=== PATIENT | male | born 1945 | race Caucasian/White ===

== ENCOUNTER → 2016-05-22 06:58 | Outpatient (CLI) | payer MEDICARE, BC ==
[2015-08-18 12:18] VITALS: BMI 25.8
[~2016-05-22 06:58] MED LIST: ASPIRIN 81 MG E81 MG PO; BENICAR HCT 40-1 TA1 PO; BENICAR20 MG PO; BYSTOLIC10 MG PO; CARAFATE1 G PO; COMBIGAN OPHT DR5 ML EACH EYE; FER-IN-SOL DROP50 ML; FLOMAX0.4 MG PO; FLUNISOLIDE29 MCG NASAL; IPRAT-ALBUT 0.5-3 ML NEB; ISOSORBIDE MONO60 M1 PO; LIPITOR10 MG PO; LUMIGAN 0.03 %2.5 ML EACH EYE; METOPROLOL TART50 MG PO; NITROSTAT0.4 MG SL; NORVASC5 MG PO; PLAVIX75 MG PO; PRILOSEC20 MG PO; PROTONIX40 MG PO; RANEXA500 MG; RANEXA500 MG PO; REQUIP XL2 MG PO; ROBAXIN-750750 MG PO; ROPINIROLE HCL2 MG PO; SPIRIVA18 MCG INH; SYMBICORT 16010.2 GM INH; ULTRAM50 MG PO
== END | disposition home or self-care (01) ==
LOC: D.RAD 06:58
DX: M54.5 Low back pain (principal)

== ENCOUNTER 2016-07-01 07:13 | Outpatient (CLI) | payer MEDICARE, BC ==
[~2016-07-01] VITALS: Ht 167.6 cm; Wt 70.0 kg
--- NOTE | ~2016-07-01 | HEMODYNAMI ---
PATIENT:TYREE ALICIA MEDICAL RECORD: [id number] : 41 LOCATION:[facility] ADMISSION DATE: 07/01/16 Generatedon:07/01/201610:54 Patient name: TYREE ALICIA Patient #: [id number] : 1945 Date of study: 07/01/2016 Page: Of Hemodynamic Procedure Report Patient Data Patient Demographics Procedure consent was obtained First Name: TYREE Gender: Male Last Name: RAVIN : 1945 [facility] Initial: J Age: 71 year(s) Patient #: [id number] Race: SSN: [id number] Additional ID: [id number] Contact details Address: [address] [place] [address] State: [place] City: [facility] Zip code: [address] Past Medical History History of disease Date Diagnosis Comments CAD Allergies Allergen Reaction Date Comments Reported Other allergy 04/12/2015 Isosorbide Admission Admission Data Admission Date: 07/01/2016 Admission Time: 7:13 Arrival Date: 07/01/2016 Arrival Time: 7:13 Admit Source: Other Insurance Payor: Medicare Height (in.): 66 BSA: 1.81 (m2) Height (cm.): 167.64 BMI: 25.66 (kg/m2) Weight (lbs.): 159 Weight (kg.): 72.12 Lab Results Lab Result Date: 07/01/2016 Lab Result Time: 0:00 Biochemistry Name Units Result Min Max BUN mg/dl 15 --(--*-)-- 7 18 Creatinine mg/dl 1.1 --(--*-)-- 0.6 1.3 Procedure Procedure Types Cath Procedure Diagnostic Procedure [facility] w/Coronaries PCI Procedure Coronary Stent Initial Miscellaneous Procedures Moderate Sedation up to 15 minutes Procedure Description Procedure Date Procedure Date: 07/01/2016 Procedure Start Time: 10:34 Procedure End Time: 10:49 Procedure Staff Name Function Neri Michaels MD Performing Physician Claudine VANEGAS Scrub Delfino Gerber RN Nurse Elsy Baez RT Monitor Procedure Data Cath Procedure Fluoroscopy Diagnostic fluoroscopy Total fluoroscopy Time: 3.3 time: 3.3 min min Diagnostic fluoroscopy Total fluoroscopy dose: 552 dose: 552 mGy mGy Contrast Material Contrast Material Type Amount (ml) Isovue 300 107 Entry Location Entry Primary Successful Side Size Upsize Upsize Entry Closure Succes sful Closure Location (Fr) 1 (Fr) 2 (Fr) Remarks Device Remarks Femoral Right 5 Fr 6 Fr Exoseal artery Short Estimated blood loss: 10 ml Diagnostic catheters Device Type Used For End Catheter Placement Cordis 5Fr Pigtail LV Angiography Catheter (MP) Cordis 5Fr JL 4.0 Procedure Catheter (MP) Cordis 5Fr 3DRC Catheter Procedure (MP) Procedure Complications No complications Procedure Medications Medication Administration Route Dosage Oxygen NC 2 l/min Lidocaine 2% added to field 20 Heparin Flush Bag added to field 2 bags (1000units/500ml NS) 0.9% NaCl I.V. 100 ml/hr Versed I.V. 1 mg Fentanyl I.V. 50 mcg Versed I.V. 1 mg Fentanyl I.V. 50 mcg Versed I.V. 1 mg Fentanyl I.V. 50 mcg Heparin Bolus I.V. 4000 units Hemodynamics Rest BSA: 1.81 (m2) O2 Consumption: Estimated: 216.84 (ml/min) O2 Consumption indexed : Estimated:119.8 (ml/min/m) Heart Rate: 82 (bpm) Snapshots Pre Cath Intra NCS Post Cath Vital Signs Time Heart Resp SPO2 etCO2 [id number] NIBP (mmHg) Rhythm Pain Sedatio n Rate (ipm) (%) (mmHg) (mmHg) Status Level (bpm) 10:16:33 80 21 98 0 0 171/102(139) NSR 0 (11) 10(A) , No pain 10:21:00 75 17 98 0 0 182/80(132) NSR 0 (11) 10(A) , No pain 10:25:20 72 17 99 0 0 131/84(108) NSR 0 (11) 10(A) , No pain 10:29:36 70 27 99 0 0 119/68(94) NSR 0 (11) 10(A) , No pain 10:33:48 69 19 99 0 0 118/68(97) NSR 0 (11) 9(A) , No pain 10:38:00 70 23 100 0 0 119/62(88) NSR 0 (11) 9(A) , No pain 10:42:11 73 20 99 0 0 115/66(95) NSR 0 (11) 9(A) , No pain 10:46:21 77 16 100 0 0 124/64(94) NSR 0 (11) 10(A) , No pain Medications Time Medication Route Dose Verified Delivered Reason Notes Effectiveness by by 10:26:25 Oxygen NC 2 Neri Buffie used for l/min Brando Gerber RN procedure 10:26:33 Lidocaine 2% added 20ml Neri Neri for local to vial Brando Michaels MD anesthetic field 10:26:40 Heparin Flush added 2 Neri Neri used for Bag to bags Brando Michaels MD procedure (1000units/500ml field NS) 10:26:50 0.9% NaCl I.V. 100 Neri Saleh Per physician ml/hr Brando Gerber RN 10:28:35 Versed I.V. 1 mg Neri Saleh for sedation Brando Gerber RN 10:28:42 Fentanyl I.V. 50 Neri Saleh for sedation mcg Brando Gerber RN 10:35:04 Versed I.V. 1 mg Nerimonica Jenkinsie for sedation Brando Gerber RN 10:35:07 Fentanyl I.V. 50 Neri Jenkinsie for sedation mcg Brando Gerber RN 10:38:43 Versed I.V. 1 mg Neri Saleh for sedation Brando Gerber RN 10:38:53 Fentanyl I.V. 50 Neri Saleh for sedation mcg Brando Gerber RN 10:39:10 Heparin Bolus I.V. 4000 Neri Jenkinsie for verifi ed units Brando Gerber RN anticoagulation with dr michaels Procedure Log Time Note 10:00:34 Delfino Gerber RN sent for patient. Start room use. 10:06:46 Informed consent obtained and on chart 10:06:50 Diagnostic Cath Status : Elective 10:07:41 Admit Source: Other 10:07:44 Arrival Date: 07/01/2016 7:13:00 AM 10:07:52 Insurance Payor : Medicare 10:08:00 Patient Height : 66 cm 10:08:04 Patient Weight : 159 kg 10:11:28 Lab Result : BUN 15 mg/dl 10:: Lab Result : Creatinine 1.1 mg/dl 10::40 Time tracking: Regular hours 10::44 Plan of Care:Hemodynamics will remain stable., Cardiac rhythm will remain stable., Comfort level will be maintained., Respiratory function will remain adequate., Patient/ family verbilizes understanding of procedure., Procedure tolerated without complication., Recovers from procedure without complications.. 10:11:50 Patient received from Pre/Post Procedure Room to CCL 1 Alert and oriented. Tansferred to table in Supine position. 10:11:51 Warm blankets applied, and tenisha hugger turned on for patient comfort. 10:11:51 Correct patient and procedure confirmed by team. 10:11:52 ECG and BP/O2 sat monitors applied to patient. 10:15:27 Baseline sample Acquired. 10:15:27 Vital chart was started 10:15:33 Rhythm: sinus rhythm , paced 10:15:35 Full Disclosure recording started 10:15:48 H&P Date Dictated: 06/24/2016 Within 30 days and on chart., H&P Addendum completed by physician on day of procedure. (MUST COMPLETE FOR ALL OUTPATIENTS). 10:15:50 Pre-procedure instructions explained to patient. 10:15:50 Pre-op teaching completed and patient verbalized understanding. 10:15:52 Family in waiting room. 10:15:53 Patient NPO since Midnight. 10:15:56 Is the patient allergic to Iodine/contrast media? No. 10:15:58 Was the patient premedicated? No 10:15:59 Is patient on blood thinner?Yes 10:16:04 ACC The patient was administered the following blood thiners within the last 24 hours: ACCPlavix 10:16:24 Patient diabetic? No. 10:16:27 Previous problem with sedation/anesthesia? No ? 10:16:29 Snore? Yes 10:16:31 Sleep apnea? No 10:16:32 Deviated septum? No 10:16:32 Opens mouth fully? Yes 10:16:33 Sticks out tongue? Yes 10:16:35 Airway obstruction? No ? 10:16:38 Dentures? No ? 10:16:42 Pre procedure: right dorsailis pedis pulse 1+ Palpable, but thready & weak; easily obliterated 10:16:44 Patient pain scale 0/10 ?. 10:16:50 IV patent on arrival in left forearm with 0.9% NaCl at [facility]. 10:16:54 Lab results completed and on chart. 10:16:59 Right groin area was prepped with chlora-prep and draped in sterile fashion 10:17:02 Alarms reviewed by R. N. 10:17:02 Sharps counted by scrub and verified by R.N. 10:18:20 Baseline sample Acquired. 10:20:18 Physician arrived 10:20:51 Use device set Femoral Dx 10:20:52 Acist Syringe opened to sterile field. 10:20:53 Bag Decanter opened to sterile field. 10:20:53 Medline Cath Pack opened to sterile field. 10:20:54 Terumo 5Fr Darrow Sheath opened to sterile field. 10:20:54 St Theo 260cm J .035 wire opened to sterile field. 10:20:55 Acist Hand Control opened to sterile field. 10:20:56 Acist Manifold opened to sterile field. 10:20:57 Diagnostic Infinity 5Fr Multipack catheter opened to sterile field. 10:20:58 Tegaderm 4 x 4 opened to sterile field. 10:25:57 --------ALL STOP TIME OUT------ 10:25:58 Final Timeout: patient, procedure, and site verified with staff and physician. All members of the team are in agreement. 10:26:03 Right groin site verified by team. 10:26:09 Sedation plan: IV Moderate Sedation Versed, Fentanyl 10:26:17 Physical assessment completed. ASA score P 2 - A patient with mild systemic disease as per Neri Michaels MD. 10:26:25 Oxygen 2 l/min NC was administered by Delfino Gerber RN; used for procedure; 10:26:33 Lidocaine 2% 20ml vial added to field was administered by Neri Michaels MD; for local anesthetic; 10:26:40 Heparin Flush Bag (1000units/500ml NS) 2 bags added to field was administered by Neri Michaels MD; used for procedure; 10:26:50 0.9% NaCl 100 ml/hr I.V. was administered by Buffie Gerber RN; Per physician; 10:28:35 Versed 1 mg I.V. was administered by Delfino Gerber RN; for sedation; 10::42 Fentanyl 50 mcg I.V. was administered by Delfino Gerber RN; for sedation; 10:30:15 Zero performed for pressure channel P1 10:30:41 Zero performed for pressure channel P1 10:34:11 Procedure started. 10:34:20 Local anesthetic to right femoral artery with Lidocaine 2% by Neri Michaels MD.INITIAL ACCESS ONLY 10:34:44 A 5 Fr sheath was inserted into the Right Femoral artery 10:35:04 Versed 1 mg I.V. was administered by Delfino Gerber RN; for sedation; 10:35:07 Fentanyl 50 mcg I.V. was administered by Delfino Gerber RN; for sedation; 10:36:10 A Cordis 5Fr Pigtail Catheter (MP) was advanced over the wire and used for LV Angiography. 10:36:17 EF : 60 % 10:36:23 Catheter removed. 10:36:31 A Cordis 5Fr JL 4.0 Catheter (MP) was advanced over the wire and used for Procedure. 10:36:59 Catheter removed. 10:38:26 A Cordis 5Fr 3DRC Catheter (MP) was advanced over the wire and used for Procedure. 10:38:31 Catheter removed. 10:38:36 Merit BasixCompak Inflation Kit opened to sterile field. 10:38:37 Terumo 6Fr Darrow Sheath opened to sterile field. 10:38:37 Ornelas Whisper J 300cm 0.014 guide wire opened to sterile field. 10:38:40 Proceeding to intervention. 10:38:43 Versed 1 mg I.V. was administered by Delfino Gerber RN; for sedation; 10:38:53 Fentanyl 50 mcg I.V. was administered by Delfino Gerber RN; for sedation; 10:39:10 Heparin Bolus 4000 units I.V. was administered by Delfino Gerber RN; for anticoagulation; verified with dr michaels 10:39:17 Sheath upsized to a 6 Fr Short. 10:41:34 6 Fr XBLAD 3.5 guide catheter was inserted over the wire 10:41:49 Whisper wire advanced. 10:42:04 Wire advanced across lesion. 10:44:27 Inflation Number: 1 A Secret Escapestronic Resolute 2.5 X 14 stent was prepped and advanced across the Ramus. The stent was deployed at 11 BELINDA for 0:10 (min:sec). 10:44:44 Cordis 6Fr Exoseal opened to sterile field. 10:44:50 Wire removed. 10:44:51 Guide catheter removed. 10:45:56 Sheath removed intact; hemostasis achieved with Exoseal to the Right Femoral artery. 10:45:59 Procedure ended.(Physican Out) 10:46:52 Fluoroscopy time 03.30 minutes. 10:47:26 Fluoroscopy dose: 552 mGy 10:47:26 Flurop Dose total: 552 10:47:32 Contrast amount:Isovue 300 107ml. 10:47:34 Sharps counted by scrub and verified by R.N. 10:47:41 Insertion/operative site no bleeding no hematoma. 10:47:46 Post-op/insertion site Right Femoral artery dressed using a 4 x 4 and Tegaderm. 10:47:51 Post right femoral artery:stable 10:47:54 Post Procedure Pulses reassessed and unchanged 10:48:01 Post-procedure physical assessment completed. ASA score P 2 - A patient with mild systemic disease as per Neri Michaels MD. 10:48:05 Post procedure rhythm: unchanged. 10:48:09 Estimated blood loss: 10 ml 10:48:12 Post procedure instruction explained to patient.Patient verbalizes understanding. 10:48:34 Procedure type changed to Cath procedure, Diagnostic procedure, LHC, LHC w/Coronaries, PCI procedure, Coronary Stent Initial, Miscellaneous Procedures, Moderate Sedation up to 15 minutes 10:48:36 Procedure and supply charges have been captured, reviewed, submitted and are correct. 10:49:00 Procedure Complication : No complications 10:49:03 Vital chart was stopped 10:49:07 See physician's report for complete and final results. 10:49:38 Report given to [facility]. 10:49:42 Patient transfered to [facility] with Bed. 10:49:44 Procedure ended. 10:49:44 Full Disclosure recording stopped 10:49:48 End room use (Document Last) 10:49:48 End room use (Document Last) Intervention Summary Intervention Notes Time ActionType Lesion and Equipment Action# Pressure Duration Attributes Used 10:44:27 Place stent Ramus Medtronic 1 11 00:10 Resolute 2.5 X 14 stent Device Usage Item Name Manufacture Quantity Catalog Hospital Part Current Minimal Lot# / Number Charge Number Stock Stock Serial# Code Acist Acist 1 [id number] 052973 656399 20 Syringe Medical [employer] Inc Bag Microtek 1 2002S 569017 34350 185857 5 Decanter Medical Inc. Medline Cardinal 1 [id number] 987866 62650 542622 5 Cath Pack Health Terumo 5Fr Terumo 1 [id number] 279489 963601 884820 [address] Theo St Theo 1 285697 120782 938856 554351 30 260cm J .035 wire Acist Hand Acist 1 99460 426072 663196 219434 5 Control Medical Systems Inc Acist Acist 1 92955 543417 780410 078337 5 Manifold Medical Systems Inc Diagnostic Cardinal 1 [id number] 609228 98406 067895 30 Infinity Health 5Fr Multipack catheter Tegaderm 4 3M 1 1626W 417241 485898 997715 5 x 4 Cordis 5Fr Cardinal 1 220848 5 Pigtail Health Catheter (MP) Cordis 5Fr Cardinal 1 733483 5 JL 4.0 Health Catheter (MP) Cordis 5Fr Cardinal 1 202041 5 3D Health Catheter (MP) Merit Merit 1 [id number] 908998 607534 749154 15 BasixCompak Medical Inflation Kit Terumo 6Fr Terumo 1 [id number] 863760 077883 108172 40 Darrow Sheath Ornelas Ornelas 1 [id number] 038403 382006 966285 5 Whisper J Vascular 300cm 0.014 guide wire Medtronic Medtronic 1 [id number] 628078 687518 6 [id number] Resolute 2.5 X 14 stent Cordis 6Fr Cardinal 1 [id number] 622811 452663 509545 10 [facility] Sproutkin Signature Audit Nelson Stage Time Signature Unsigned Intra-Procedure 07/01/2016 Elsy Baez 10:54:36 AM RT(R) Signatures Monitor : Elsy Baez Signature : RT Date : Time : [facility] [address] [place] [address]
--- NOTE | ~2016-07-01 | HEMODYNAMI ---
PATIENT:TYREE ALICIA MEDICAL RECORD: [id number] : 41 LOCATION:[facility] [address] [facility] [id number] ADMISSION DATE: 07/01/16 Generatedon:07/02/20168:37 Patient name: TYREE ALICIA Patient #: [id number] : 1945 Date of study: 07/02/2016 Page: Of Hemodynamic Procedure Report Patient Data Patient Demographics Procedure consent was obtained First Name: TYREE Gender: Male Last Name: RAVIN : 1945 [facility] Initial: J Age: 71 year(s) Patient #: [id number] Race: SSN: [id number] Additional ID: [id number] Contact details [address]: [address] [place] [address] State: [place] City: [facility] Zip code: [address] Past Medical History History of disease Date Diagnosis Comments CAD Allergies Allergen Reaction Date Comments Reported Other allergy 04/12/2015 Isosorbide Admission Admission Data Admission Date: 07/01/2016 Admission Time: 7:13 Arrival Date: 07/01/2016 Arrival Time: 7:13 Admit Source: Other Insurance Payor: Medicare Room #: D.2117 Height (in.): 66 BSA: 1.81 (m2) Height (cm.): 167.64 BMI: 25.66 (kg/m2) Weight (lbs.): 159 Weight (kg.): 72.12 Lab Results Lab Result Date: 07/01/2016 Lab Result Time: 0:00 Biochemistry Name Units Result Min Max BUN mg/dl 15 --(--*-)-- 7 18 Creatinine mg/dl 1.1 --(--*-)-- 0.6 1.3 Procedure Procedure Types Cath Procedure PCI Procedure Coronary Stent Initial Miscellaneous Procedures Moderate Sedation up to 15 minutes Procedure Description Procedure Date Procedure Date: 07/02/2016 Procedure Start Time: 8:18 Procedure End Time: 8:36 Procedure Staff Name Function Neri Michaels MD Performing Physician Hector Rousseau RT Scrub Tracy Hunt RN Nurse Benjamín Best RT Monitor Procedure Data Cath Procedure Fluoroscopy Diagnostic fluoroscopy Total fluoroscopy Time: 5.6 time: 5.6 min min Diagnostic fluoroscopy Total fluoroscopy dose: 557 dose: 557 mGy mGy Contrast Material Contrast Material Type Amount (ml) Isovue 300 68 Entry Location Entry Primary Successful Side Size Upsize Upsize Entry Closure Succes sful Closure Location (Fr) 1 (Fr) 2 (Fr) Remarks Device Remarks Femoral Left 6 Fr Exoseal artery Short Estimated blood loss: 10 ml Procedure Complications No complications Procedure Medications Medication Administration Route Dosage Oxygen NC 2 l/min Heparin Flush Bag added to field 2 bags (1000units/500ml NS) Lidocaine 2% added to field 20 Versed I.V. 1 mg Fentanyl I.V. 50 mcg Versed I.V. 1 mg Fentanyl I.V. 50 mcg Versed I.V. 0.5 mg Fentanyl I.V. 25 mcg Versed I.V. 0.5 mg Fentanyl I.V. 25 mcg Heparin Bolus I.V. 4000 units Hemodynamics Rest BSA: 1.81 (m2) O2 Consumption: Estimated: 209.82 (ml/min) O2 Consumption indexed : Estimated:115.92 (ml/min/m) Heart Rate: 72 (bpm) Snapshots Pre Cath Intra NCS Post Cath Vital Signs Time Heart Resp SPO2 NIBP (mmHg) Rhythm Pain Sedation Rate (ipm) (%) Status Level (bpm) 7:50:03 73 18 100 169/92(136) NSR 0 (11) 10(A) , No pain 7:54:23 71 14 100 163/84(140) NSR 0 (11) 10(A) , No pain 7:58:39 72 17 99 146/83(117) NSR 0 (11) 10(A) , No pain 8:02:53 69 15 97 122/72(103) NSR 0 (11) 10(A) , No pain 8:07:03 69 14 97 113/66(85) NSR 0 (11) 10(A) , No pain 8:11:11 69 16 97 108/63(87) NSR 0 (11) 10(A) , No pain 8:15:17 69 16 97 106/64(85) NSR 0 (11) 9(A) , No pain 8:19:20 69 16 97 110/66(87) NSR 0 (11) 9(A) , No pain 8:23:28 69 16 97 110/65(88) NSR 0 (11) 9(A) , No pain 8:27:34 70 16 97 111/64(86) NSR 0 (11) 9(A) , No pain 8:31:40 77 15 97 123/68(98) NSR 0 (11) 9(A) , No pain 8:35:52 70 12 97 113/68(96) NSR 0 (11) 9(A) , No pain Medications Time Medication Route Dose Verified Delivered Reason Notes Effectiveness by by 7:52:37 Oxygen NC 2 Neri Tracy Per physician l/min Brando Hunt RN 7:52:46 Heparin Flush added 2 Neri Neri used for Bag to bags Brando Michaels MD procedure (1000units/500ml field NS) 7:54:08 Lidocaine 2% added 20ml Neri Neri used for to vial Brando Michaels MD procedure field 7:56:27 Versed I.V. 1 mg Neri Tracy for sedation Brando Hunt RN 7:56:40 Fentanyl I.V. 50 Neri Tracy for sedation mcg Brando Hunt RN 7:58:30 Versed I.V. 1 mg Neri Tracy for sedation Brando Hunt RN 7:59:06 Fentanyl I.V. 50 Neri Tracy for sedation mcg Brando Hunt RN 8:01:45 Versed I.V. 0.5 Neri Tracy for sedation mg Brando Hunt RN 8:01:57 Fentanyl I.V. 25 Neri Tracy for sedation mcg Brando Hunt RN 8:16:17 Versed I.V. 0.5 Neri Tracy for sedation mg Brando Hunt RN 8:16:24 Fentanyl I.V. 25 Neri Tracy for sedation mcg Brando Hunt RN 8:20:26 Heparin Bolus I.V. 4000 Neri Tracy for dose units Brando Hunt RN anticoagulation verified wt dr michaels Procedure Log Time Note 7:30:15 Hector VANEGAS(R) sent for patient. Start room use. 7:32:09 ACC Patient presents with Stable Angina CCS Anginal Class 2--Slight limitation of ordinary activity. 7:32:13 Diagnostic Cath status Urgent 7:32:23 Time tracking: Regular hours 7:32:27 Plan of Care:Hemodynamics will remain stable., Cardiac rhythm will remain stable., Comfort level will be maintained., Respiratory function will remain adequate., Patient/ family verbilizes understanding of procedure., Procedure tolerated without complication., Recovers from procedure without complications.. 7:47:04 Patient received from PCU to CCL 2 Alert and oriented. Tansferred to table in Supine position. 7:47:05 Warm blankets applied, and tenisha hugger turned on for patient comfort. 7:47:05 Correct patient and procedure confirmed by team. 7:47:06 Signed procedure consent form obtained from patient. 7:47:07 ECG and BP/O2 sat monitors applied to patient. 7:48:53 Vital chart was started 7:52:37 Oxygen 2 l/min NC was administered by Tracy Hunt RN; Per physician; 7:52:46 Heparin Flush Bag (1000units/500ml NS) 2 bags added to field was administered by Neri Michaels MD; used for procedure; 7:54:08 Lidocaine 2% 20ml vial added to field was administered by Neri Michaels MD; used for procedure; 7:55:12 Baseline sample Acquired. 7:55:22 Rhythm: sinus rhythm 7:55:24 Full Disclosure recording started 7:55:29 H&P Date Dictated: 07/01/2016 Within 30 days and on chart., H&P Addendum completed by physician on day of procedure. (MUST COMPLETE FOR ALL OUTPATIENTS). 7:55:31 Pre-procedure instructions explained to patient. 7:55:31 Pre-op teaching completed and patient verbalized understanding. 7:55:34 Family in waiting room. 7:55:35 Patient NPO since Midnight. 7:55:37 Is the patient allergic to Iodine/contrast media? No. 7:55:38 Is patient on blood thinner?Yes 7:55:41 ACC The patient was administered the following blood thiners within the last 24 hours: ACCPlavix 7:55:42 Patient diabetic? No. 7:55:44 Previous problem with sedation/anesthesia? No ? 7:55:46 Snore? Yes 7:55:47 Sleep apnea? No 7:55:48 Deviated septum? No 7:55:49 Opens mouth fully? Yes 7:55:49 Sticks out tongue? Yes 7:55:51 Airway obstruction? No ? 7:55:53 Dentures? No ? 7:55:56 Pre procedure: left dorsailis pedis pulse 1+ Palpable, but thready & weak; easily obliterated 7:55:58 Patient pain scale 0/10 ?. 7:56:07 IV patent on arrival in left forearm with 0.9% NaCl at [facility]. 7:56:09 Lab results completed and on chart. 7:56:12 Left groin area was prepped with chlora-prep and draped in sterile fashion 7:56:13 Alarms reviewed by R. N. 7:56:14 Sharps counted by scrub and verified by R.N. 7:56:15 --------ALL STOP TIME OUT------ 7:56:15 Final Timeout: patient, procedure, and site verified with staff and physician. All members of the team are in agreement. 7:56:19 Left groin site verified by team. 7:56:22 Physical assessment completed. ASA score P 2 - A patient with mild systemic disease as per Neri Michaels MD. 7:56:24 Sedation plan: IV Moderate Sedation Versed, Fentanyl 7:56:27 Versed 1 mg I.V. was administered by Tracy Hunt RN; for sedation; 7:56:40 Fentanyl 50 mcg I.V. was administered by Tracy Hunt RN; for sedation; 7:58:30 Versed 1 mg I.V. was administered by Tracy Hunt RN; for sedation; 7:59:06 Fentanyl 50 mcg I.V. was administered by Tracy Hunt RN; for sedation; 8:01:45 Versed 0.5 mg I.V. was administered by Tracy Hunt RN; for sedation; 8:01:57 Fentanyl 25 mcg I.V. was administered by Tracy Hunt RN; for sedation; 8:03:18 Zero performed for pressure channel P1 8:16:17 Versed 0.5 mg I.V. was administered by Tracy Hunt RN; for sedation; 8:16:24 Fentanyl 25 mcg I.V. was administered by Tracy Hunt RN; for sedation; 8:17:32 Use device set Femoral PCI 8:17:33 Tegaderm 4 x 4 opened to sterile field. 8:17:34 Acist Manifold opened to sterile field. 8:17:35 Acist Syringe opened to sterile field. 8:17:35 Acist Hand Control opened to sterile field. 8:17:36 Bag Decanter opened to sterile field. 8:17:36 Medline Cath Pack opened to sterile field. 8:17:36 Terumo 6Fr Elberfeld Sheath opened to sterile field. 8:17:37 St Theo 260cm J .035 wire opened to sterile field. 8:17:37 Merit BasixCompak Inflation Kit opened to sterile field. 8:17:53 Ornelas Whisper J 300cm 0.014 guide wire opened to sterile field. 8:17:54 Cordis 6FR XBLAD 3.5 guide catheter opened to sterile field. 8:17:57 Procedure started. 8:18:01 Local anesthetic to left femerol artery with Lidocaine 2% by Neri Michaels MD.INITIAL ACCESS ONLY 8:20:26 Heparin Bolus 4000 units I.V. was administered by Tracy Hunt RN; for anticoagulation; dose verified wtih dr michaels 8:20:48 A 6 Fr Short sheath was inserted into the Left Femoral artery 8:21:15 ACC PCI Site: mLAD has 80% stenosis. 8:21:17 ACC Pre-intervention DERICK Flow is 3. 8:21:22 6 Fr XBLAD 3.5 guide catheter was inserted over the wire 8:22:03 Whisper wire advanced. 8:22:58 Wire advanced across lesion. 8:24:15 The Medtronic Resolute 3.0 X 15 stent was advanced then removed because of failure to cross lesion 8:24:21 Wire removed. 8:24:24 Guide Catheter removed. unable to get back-up support 8:24:31 Cordis 6FR XBLAD 4.0 guide catheter opened to sterile field. 8:24:38 6 Fr XBLAD 4 guide catheter was inserted over the wire 8:25:25 Choice PT XS wire advanced. 8:25:34 Talco Sci Choice PT Extra Support J 300cm .014 gu opened to sterile field. 8:25:59 Wire advanced across lesion. 8:26:18 Inflation number: 1 A Talco Sci [place] 3.0 X 20 balloon was prepped and advanced across the Mid LAD, then inflated to 17 BELINDA for 0:10 (min:sec). 8:26:53 Multiple inflations made at 17 Atms. 8:27:46 Balloon removed over the wire. 8:28:34 Inflation Number: 2 A Medtronic Resolute 3.0 X 15 stent was prepped and advanced across the Mid LAD. The stent was deployed at 21 BELINDA for 0:10 (min:sec). 8:29:12 Inflation number: 3 The stent balloon was then re-inflated across the Mid LAD to 15 BELINDA for 0:10 (min:sec). 8:29:36 Cordis 6Fr Exoseal opened to sterile field. 8:30:01 Inflation number: 4 The stent balloon was then re-inflated across the Mid LAD to 21 BELINDA for 0:10 (min:sec). 8:30:10 ACC Post-intervention DERICK Flow is 3. 8:30:11 Stent catheter was removed intact over wire. 8:30:12 Wire removed. 8:30:12 Guide catheter removed. 8:30:21 Sheath removed intact; hemostasis achieved with Exoseal to the Left Femoral artery. 8:30:24 Procedure ended.(Physican Out) 8:30:38 Fluoroscopy time 05.60 minutes. 8:30:41 Fluoroscopy dose: 557 mGy 8:30:41 Flurop Dose total: 557 8:30:45 Contrast amount:Isovue 300 68ml. 8:30:47 Sharps counted by scrub and verified by R.N. 8:30:48 Insertion/operative site no bleeding no hematoma. 8:30:54 Post-op/insertion site Left Femoral artery dressed using a 4 x 4 and Tegaderm. 8:30:56 Post Procedure Pulses reassessed and unchanged 8:30:59 Post-procedure physical assessment completed. ASA score P 2 - A patient with mild systemic disease as per Neri Michaels MD. 8:31:03 Post procedure rhythm: unchanged. 8:31:06 Estimated blood loss: 10 ml 8:31:07 Post procedure instruction explained to patient.Patient verbalizes understanding. 8:31:07 Patient needs reinforcement of post procedure teaching. 8:31:14 Procedure type changed to Cath procedure, PCI procedure, Coronary Stent Initial, Miscellaneous Procedures, Moderate Sedation up to 15 minutes 8:31:18 Procedure Complication : No complications 8:32:04 Procedure and supply charges have been captured, reviewed, submitted and are correct. 8:36:42 Vital chart was stopped 8:36:45 See physician's report for complete and final results. 8:36:47 Report given to PCU. 8:36:49 Patient transfered to PCU with Bed. 8:36:52 Procedure ended. 8:36:52 Full Disclosure recording stopped 8:36:57 End room use (Document Last) Intervention Summary Intervention Notes Time ActionType Lesion and Equipment Action# Pressure Duration Attributes Used 8:24:15 Discard Medtronic Stent Resolute 3.0 X 15 stent 8:26:18 Inflate Mid LAD Talco 1 17 00:10 balloon Sci [place] 3.0 X 20 balloon 8:28:34 Place stent Mid LAD Medtronic 2 21 00:10 Resolute 3.0 X 15 stent 8:29:12 Reinflate Mid LAD Medtronic 3 15 00:10 stent Resolute balloon 3.0 X 15 stent 8:30:01 Reinflate Mid LAD Medtronic 4 21 00:10 stent Resolute balloon 3.0 X 15 stent Device Usage Item Name Manufacture Quantity Catalog Number Hospital Part Current Mini mal Lot# / Charge Number Stock Stock Serial# Code Tegaderm 4 3M 1 [id number] [id number] 5 x 4 Acist Acist 1 93859 331446 134662 138713 5 Manifold Medical Systems Inc Acist Acist 1 57470 850790 628930 268239 20 Syringe Medical Systems Inc Acist Hand Acist 1 78376 454201 532983 737661 5 Control Medical Systems Qwilr Bag Microtek 1 2002S 043161 75754 833553 5 [place]. Medline Cardinal 1 [id number] 347949 33447 842084 5 The Zebra Terumo 6Fr Terumo 1 [id number] 025287 288800 251479 [address] Theo 1 608988 459396 854469 713691 30 260cm J .035 wire Merit Merit 1 [id number] 949686 665512 420629 15 BasixCompak Medical Inflation Kit Ornelas Ornelas 1 [id number] 611542 792655 001967 5 Whisper J Vascular 300cm 0.014 guide wire Cordis 6FR Cardinal 1 [id number] 804007 946551 787813 10 XBLAD 3.5 Health guide catheter Medtronic Medtronic 1 [id number] 397356 743238 4 [id number] Resolute 3.0 X 15 stent Cordis 6FR Cardinal 1 [id number] 782692 336704 516352 3 XBLAD 4.0 Health guide catheter Talco Sci Talco 1 [id number] 149256 499395 568417 5 Choice PT Scientific Extra Support J 300cm .014 gu Talco Sci Talco 1 [id number] 989972 177547 450863 1 AssayMetrics 3.0 X 20 balloon Cordis 6Fr Cardinal 1 EX600 179174 566482 600991 10 Soonr Signature Audit [place] Stage Time Signature Unsigned Intra-Procedure 07/02/2016 Benjamín Best 8:37:12 AM RT(R) Signatures Monitor : Benjamín Best RT Signature : Date : Time : [id number] [place] [address]
--- NOTE | ~2016-07-01 | OP ---
PATIENT NAME: TYREE ALICIA MEDICAL RECORD: [id number] :41 LOCATION:D. D.7 ADMISSION DATE: SURGEON: JING ERVIN MD DATE OF OPERATION: 07/02/2016 PROCEDURES: 1. PTCA stent, LAD. 2. Selective coronary angiography. INDICATIONS: Angina and coronary artery disease. PROCEDURE IN DETAIL: After informed consent was obtained and after detailed explanation of risks, benefits as well as alternative therapies, the patient elected to proceed with angiogram and angioplasty. The left femoral area was prepped and draped in normal sterile fashion. Left femoral artery was cannulated via modified Seldinger technique with placement of 6-Kyrgyz sheath. All catheters exchanged through this sheath. FINDINGS: The left anterior descending has an 80% in-stent restenosis in the mid vessel. This was addressed with a 3.0 x 15 mm Resolute stent. Result was 0% residual stenosis. OVERALL IMPRESSION: Successful percutaneous transluminal coronary angioplasty stent of the left anterior descending going from 80% in-stent restenosis to 0% residual. TRANSINT:[id number] Voice Confirmation ID: [id number] DOCUMENT ID: [id number] JING ERVIN MD CC: [id number] DICTATION DATE: 07/02/16 0835 DOUBLE END SEWER: 07/02/16 1054 REG [facility] [address] [place] [id number]
--- NOTE | ~2016-07-01 | OP ---
PATIENT NAME: TYREE ALICIA MEDICAL RECORD: [id number] :41 LOCATION:D.M2 D.2117 ADMISSION DATE: SURGEON: JING ERVIN MD DATE OF OPERATION: 07/01/2016 PROCEDURES: 1. PTCA stent of the left circumflex. 2. Left heart catheterization. 3. Selective coronary angiography. 4. Left ventriculogram. INDICATION: Angina and coronary artery disease. PROCEDURE IN DETAIL: After informed consent was obtained and after a detailed explanation of the risks, benefits as well as alternative therapies, the patient elected to proceed with angiogram and angioplasty. The right femoral area was prepped and draped in normal sterile fashion. Right femoral artery was cannulated via modified Seldinger technique with placement of 6-[place] sheath. All catheters exchanged through this sheath. FINDINGS: The left ventriculogram was performed in standard 30-degree RODRIGUEZ view, reveals good cardiac wall motion throughout all segments. Overall ejection fraction estimated at 60%. SELECTIVE CORONARY ANGIOGRAPHY: 1. Left main showed no significant angiographic disease. 2. Left anterior descending has previously placed stents. There is 80 plus percent in-stent restenosis in the mid vessel. 3. The left circumflex has a relatively large ramus intermedius, has a previously placed stent. This is widely patent. However, proximal to this, there is 80 plus percent stenosis, otherwise the circumflex has only mild irregularities. 4. The right coronary has previously placed stents, these are widely patent with no significant restenosis. No disease elsewise throughout the RCA or its branches. PTCA stent of the left circumflex, ramus intermedius, the balloon with stent used was a 2.5 x 14-mm Resolute. Result was 0% residual stenosis. OVERALL IMPRESSION: Successful percutaneous transluminal coronary angioplasty stent of the ramus intermedius going from 80 plus percent initial stenosis to 0% residual. TRANSINT:[id number] Voice Confirmation ID: [id number] DOCUMENT ID: [id number] JING ERVIN MD CC: [id number] DICTATION DATE: 07/01/16 105 CRM SOLUTION ARCHITECT: 07/01/162104 [facility] [address] [place] [address]
--- NOTE | ~2016-07-01 | DS ---
PATIENT:TYREE ALICIA :41 MEDICAL RECORD: [id number] DISCHARGE SUMMARY ADMISSION DATE: 07/01/16 DISCHARGE DATE: DISCHARGE DIAGNOSES: 1. Angina. 2. Coronary artery disease. 3. Percutaneous transluminal coronary angioplasty stent, ramus intermedius and left anterior descending this admission. HOSPITAL COURSE: Mr. Alicia presents with anginal symptomatology, found to have 3-vessel coronary artery disease of the left circumflex, ramus intermedius as well as the LAD, underwent successful PTCA stent of above territories. He had an uneventful postop course. He was discharged home to continue aspirin and Plavix. We will follow up with [facility] in 1 month. TRANSINT:[id number] Voice Confirmation ID: [id number] DOCUMENT ID: [id number] JING ERVIN MD CC: [id number] DICTATION DATE: 07/02/16 0835 STAVE CUTTER: 07/02/16 1224 REG [facility] [address] [place] [id number]
[~2016-07-01 07:13] MED LIST changes: -FLUNISOLIDE29 MCG NASAL
[2016-07-01] MEDS ORDERED: FLOMAX0.4 MG PO (07:34)
[2016-07-01] MEDS ORDERED: FLUNISOLIDE29 MCG NASAL (07:35)
[2016-07-01 07:37] VITALS: BP 172/86; BMI 24.9
[2016-07-01 08:04] LABS: CALCIUM 8.9 mg/dL (8.5-10.1); CARBON DIOXIDE 26.1 mmol/L (21.0-32.0); CREATININE - SERUM 1.1 mg/dL (0.6-1.3); POTASSIUM - SERUM 4.1 mmol/L (3.5-5.1)
[2016-07-01 08:25] LABS: BASOPHILS 0.2 % (0.0-2.0); EOSINOPHILS 0.9 % (0-7); HEMATOCRIT 41.4 % (42.0-54.0); HEMOGLOBIN 13.3 g/dL (13.5-17.5); IMMATURE GRANULOCYTES 0.6 % (0-5); LYMPHOCYTES 22.5 % (15-50); MCH 25.9 pg (26.0-34.0); MCHC 32.1 g/dL (31.0-37.0); MCV 80.7 fL (80.0-100.0); MEAN PLATELET VOLUME 9.6 fL (7.4-10.4); MONOCYTES 13.8 % (2-11); PLATELET COUNT 276 10x3/uL (130-400); RBC 5.13 10x6/uL (4.20-6.10); RDW 17.8 % (11.5-14.5); WBC 10.2 10x3/uL (4.8-10.8)
--- NOTE | 2016-07-01 11:00 | NUR ---
RECEIVED PT TO ROOM 2116 IN STABLE CONDITION RT YESICA LO C/D/I DENIES ANY NEEDS OR DISCOMFORT
[2016-07-01 13:14] VITALS: BP 159/82
[2016-07-01 15:20] VITALS: Ht 167.6 cm; Wt 70.0 kg
[2016-07-01 17:16] VITALS: BP 163/73
--- NOTE | 2016-07-01 19:00 | NUR ---
INITIAL ROUNDS MADE. PT SITTING UP IN BED WATCHING TV. DENIES NEEDS OR C/O AT THIS TIME. CALL LIGHT IN REACH. WILL CONT TO MONITOR.
[2016-07-01 20:00] VITALS: BP 158/82
--- NOTE | 2016-07-02 00:27 | NUR ---
ENVIRONMENTAL SAFETY SPECIALIST AT BEDSIDE FOR VS. NEEDS ADDRESSED AT THIS TIME. CALL LIGHT IN REACH. WILL CONT TO MONITOR.
[2016-07-02 00:36] VITALS: BP 144/92
[2016-07-02 04:59] VITALS: BP 158/77
--- NOTE | 2016-07-02 06:34 | NUR ---
SITTING UP IN BED WATCHING TV. NO NEEDS OR C/O VOICED AT THIS TIME. WILL CONT TO MONITOR.
--- NOTE | 2016-07-02 13:30 | NUR ---
REVIEWED DISCHARGE INSTRUCTIONS WITH PT AND BOTH STATE UNDERSTANDING COPY GIVEN DCD SALINE LOCK DCD TO LFA WITH IV CATHETER INTACT NO REDNESS OR EDEMA NOTED AT SITE PT DISCHARGED HOME IN STABLE CONDITION LEFT UNIT VIA W/C WITH ALL PERSOAL BELONGINGS
== END 2016-07-02 13:30 | disposition home or self-care (01) ==
LOC: D.M2 07:13 → D.CATH 07:13 → D.M2 11:14 → D.CATH 07-02 13:30
PROVIDERS: Internal Medicine Interventional Cardiology
DX: I25.119 Atherosclerotic heart disease of native coronary artery with unspecified angina pectoris (principal); R94.31 Abnormal electrocardiogram [ECG] [EKG]; Z95.0 Presence of cardiac pacemaker; I10 Essential (primary) hypertension; F17.200 Nicotine dependence, unspecified, uncomplicated; E78.5 Hyperlipidemia, unspecified
CPT/HCPCS: 93458; C9600 ×2

== ENCOUNTER 2016-09-24 08:54 | Outpatient (CLI) | payer MEDICARE, BC ==
[~2016-09-24] VITALS: Ht 167.6 cm; Wt 69.1 kg
--- NOTE | ~2016-09-24 | OP ---
PATIENT NAME: TYREE ALICIA MEDICAL RECORD: [id number] :41 LOCATION:D.CAT ADMISSION DATE: SURGEON: JING ERVIN MD OPERATION DATE: 09/24/16 PROCEDURES: 1. Left heart catheterization. 2. Selective coronary angiography. 3. Left ventriculogram. INDICATION: 1. Angina. 20 Coronary artery disease. PROCEDURE IN DETAIL: After informed consent was obtained and after detailed explanation of risks, benefits, as well as alternative therapies, the patient elected to proceed with angiogram. The right femoral area was prepped and draped in a normal sterile fashion. The right femoral artery was cannulated via modified Seldinger technique with placement of 5-Ecuadorean sheath. All catheters exchanged through this sheath. FINDINGS: The left ventriculogram was performed in standard 30 degree RODRIGUEZ view, reveals good cardiac wall motion throughout all segments. Overall ejection fraction estimated 60%. SELECTIVE CORONARY ANGIOGRAPHY: 1. Left main is with no significant angiographic disease. 2. Left anterior descending has previously placed stents. These are widely patent with no significant restenosis. No disease elsewise throughout the left anterior descending or its branches. 3. The left circumflex has mild irregularities but no flow-limiting stenosis. 4. The right coronary artery has previously placed stents. These are widely patent with no significant stenosis. No disease elsewise throughout the right coronary artery or its branches. OVERALL IMPRESSION: No significant restenosis of the previously placed stents. No disease elsewise. Continue medical management of the coronary artery disease and cardiac risk factors. JING ERVIN MD CC: [id number] DICTATION DATE: 09/24/16 1400 PHYSICS TECHNICAL OFFICER: DM 09/25/16 0908 DEP CLI 09/24/16 [id number] [place] [address]
--- NOTE | ~2016-09-24 | HEMODYNAMI ---
PATIENT:TYREE ALICIA MEDICAL RECORD: [id number] : 41 LOCATION:[facility] ADMISSION DATE: 09/24/16 Generatedon:09/24/201611:25 Patient name: TYREE ALICIA Patient #: [id number] : 1945 Date of study: 09/24/2016 Page: Of Hemodynamic Procedure Report Patient Data Patient Demographics Procedure consent was obtained First Name: TYREE Gender: Male Last Name: RAVIN : 1945 [facility] Initial: J Age: 71 year(s) Patient #: [id number] Race: SSN: [id number] Additional ID: [id number] Contact details Address: [address] [place] [address] State: [place] City: [facility] Zip code: [address] Past Medical History History of disease Date Diagnosis Comments CAD Allergies Allergen Reaction Date Comments Reported Other allergy 04/12/2015 Isosorbide Codeine 09/24/2016 Admission Admission Data Admission Date: 09/24/2016 Admission Time: 8:54 Lab Results Lab Result Date: 09/24/2016 Lab Result Time: 0:00 Biochemistry Name Units Result Min Max BUN mg/dl 10 --(-*--)-- 7 18 Calcium mg/dl 1.1 *-(----)-- 8.5 10.1 CBC Name Units Result Min Max Hemoglobin g/dl 12.8 -*(----)-- 13.5 17.5 Procedure Procedure Types Cath Procedure Diagnostic Procedure LHC LHC w/Coronaries Miscellaneous Procedures Moderate Sedation up to 30 minutes Procedure Description Procedure Date Procedure Date: 09/24/2016 Procedure Start Time: 11:17 Procedure End Time: 11:23 Procedure Staff Name Function Neri Michaels MD Performing Physician Benjamín Best RT Scrub Tracy Hunt RN Nurse Vishal Lester RN Installation And Repair Technician Hector Rousseau RT Monitor Procedure Data Cath Procedure Fluoroscopy Diagnostic fluoroscopy Total fluoroscopy Time: 0.8 time: 0.8 min min Diagnostic fluoroscopy Total fluoroscopy dose: 228 dose: 228 mGy mGy Contrast Material Contrast Material Type Amount (ml) Isovue 300 51 Entry Location Entry Primary Successful Side Size Upsize Upsize Entry Closure Succes sful Closure Location (Fr) 1 (Fr) 2 (Fr) Remarks Device Remarks Femoral Right 5 Fr Exoseal artery Diagnostic catheters Device Type Used For End Catheter Placement Cordis 5Fr Pigtail LV Angiography Catheter (MP) Cordis 5Fr JL 4.0 Left Coronary Catheter (MP) Angiography Cordis 5Fr 3DRC Catheter Right Coronary (MP) Angiography Procedure Complications No complications Procedure Medications Medication Administration Route Dosage Oxygen NC 2 l/min Heparin Flush Bag added to field 2 bags (1000units/500ml NS) Lidocaine 2% added to field 20 Versed I.V. 1 mg Fentanyl I.V. 50 mcg Versed I.V. 1 mg Fentanyl I.V. 50 mcg Versed I.V. 1 mg Fentanyl I.V. 50 mcg Versed I.V. 1 mg Fentanyl I.V. 50 mcg Hemodynamics Rest HGB: 12.8 (g/dl) Heart Rate: 80 (bpm) Snapshots Pre Cath Intra NCS Post Cath Vital Signs Time Heart Resp SPO2 NIBP (mmHg) Rhythm Pain Sedation Rate (ipm) (%) Status Level (bpm) 10:47:19 81 16 98 148/88(120) NSR 0 (11) 10(A) , No pain 10:51:33 79 16 100 150/84(118) NSR 0 (11) 10(A) , No pain 10:55:47 83 15 100 147/85(114) NSR 0 (11) 10(A) , No pain 11:00:03 79 19 100 139/80(109) NSR 0 (11) 10(A) , No pain 11:04:19 78 16 100 116/68(96) NSR 0 (11) 10(A) , No pain 11:08:25 75 15 100 125/72(95) NSR 0 (11) 9(A) , No pain 11:12:34 75 15 100 115/71(104) NSR 0 (11) 9(A) , No pain 11:16:40 73 15 100 122/74(101) NSR 0 (11) 9(A) , No pain 11:20:48 81 15 100 122/75(106) NSR 0 (11) 9(A) , No pain 11:23:22 82 16 99 133/74(104) NSR 0 (11) 9(A) , No pain Medications Time Medication Route Dose Verified Delivered Reason Notes Effec tiveness by by 10:47:25 Oxygen NC 2 Neri Tracy used for l/min Brando Hunt RN procedure 10:47:39 Heparin Flush added 2 Neri Neri used for Bag to bags Brando Michaels MD procedure (1000units/500ml field NS) 10:47:50 Lidocaine 2% added 20ml Neri Neri used for to vial Brando Michaels MD procedure field 10:58:03 Versed I.V. 1 mg Neri Tracy for Brando Hunt RN sedation 10:58:15 Fentanyl I.V. 50 Neri Tracy for mcg Brando Hunt RN sedation 11:00:06 Versed I.V. 1 mg Neri Tracy for Brando Hunt RN sedation 11:00:18 Fentanyl I.V. 50 Neri Tracy for mcg Brando Hunt RN sedation 11:02:09 Versed I.V. 1 mg Neri Tracy for Brando Hunt RN sedation 11:02:16 Fentanyl I.V. 50 Neri Tracy for mcg Brando Hunt RN sedation 11:05:02 Versed I.V. 1 mg Neri Tracy for Brnado Hunt RN sedation 11:05:19 Fentanyl I.V. 50 Neri Tracy for mcg Brando Hunt RN sedation Procedure Log Time Note 10:39:06 ACC Patient presents with Stable Angina CCS Anginal Class 2--Slight limitation of ordinary activity. 10:39:08 Diagnostic Cath status Elective 10:39:10 Vishal Lester RN sent for patient. Start room use. 10:39:11 Time tracking: Regular hours 10:39:15 Plan of Care:Hemodynamics will remain stable., Cardiac rhythm will remain stable., Comfort level will be maintained., Respiratory function will remain adequate., Patient/ family verbilizes understanding of procedure., Procedure tolerated without complication., Recovers from procedure without complications.. 10:40:55 Patient received from Pre/Post Procedure Room to [facility] 2 Alert and oriented. Tansferred to table in Supine position. 10:41:04 Warm blankets applied, and tenisha hugger turned on for patient comfort. 10:41:04 Correct patient and procedure confirmed by team. 10:41:05 Signed procedure consent form obtained from patient. 10:41:06 ECG and BP/O2 sat monitors applied to patient. 10:46:16 Vital chart was started 10:47:25 Oxygen 2 l/min NC was administered by Tracy Hunt RN; used for procedure; 10:47:39 Heparin Flush Bag (1000units/500ml NS) 2 bags added to field was administered by Neri Michaels MD; used for procedure; 10:47:50 Lidocaine 2% 20ml vial added to field was administered by Neri Michaels MD; used for procedure; 10:54:56 Baseline sample Acquired. 10:54:58 Rhythm: sinus rhythm 10:55:00 Full Disclosure recording started 10:55:16 H&P Date Dictated: 09/23/2016 Within 30 days and on chart., H&P Addendum completed by physician on day of procedure. (MUST COMPLETE FOR ALL OUTPATIENTS). 10:55:18 Pre-procedure instructions explained to patient. 10:55:18 Pre-op teaching completed and patient verbalized understanding. 10:55:23 Family in patients room. 10:55:24 Patient NPO since Midnight. 10:55:40 Patient allergic to Codeine 10:55:43 Is the patient allergic to Iodine/contrast media? No. 10:55:49 Is patient on blood thinner?Yes 10:55:52 ACC The patient was administered the following blood thiners within the last 24 hours: ACCPlavix 10:55:55 Patient diabetic? No. 10:55:56 ----Pre-sedation anethsthesia assessment.---- 10:55:58 Previous problem with sedation/anesthesia? No ? 10:56:00 Snore? Yes 10:56:02 Sleep apnea? No 10:56:04 Deviated septum? No 10:56:05 Opens mouth fully? Yes 10:56:06 Sticks out tongue? Yes 10:56:08 Airway obstruction? No ? 10:56:10 Dentures? No ? 10:56:12 Pre procedure: right dorsailis pedis pulse 1+ Palpable, but thready & weak; easily obliterated 10:56:15 Patient pain scale 0/10 ?. 10:56:39 IV patent on arrival in left forearm with 0.9% NaCl at 10ml/hr. 10:57:28 Lab Result : Calcium 1.1 mg/dl 10:57:28 Lab Result : BUN 10 mg/dl 10:57:28 Lab Result : Hemoglobin 12.8 g/dl 10:57:31 Lab results completed and on chart. 10:57:38 Right groin area was prepped with chlora-prep and draped in sterile fashion 10:57:39 Alarms reviewed by R. N. 10:57:39 Sharps counted by scrub and verified by R.N. 10:57:40 --------ALL STOP TIME OUT------ 10:57:40 Final Timeout: patient, procedure, and site verified with staff and physician. All members of the team are in agreement. 10:57:42 Right groin site verified by team. 10:57:45 Physical assessment completed. ASA score P 2 - A patient with mild systemic disease as per Neri Michaels MD. 10:57:49 Sedation plan: IV Moderate Sedation Versed, Fentanyl 10:57:57 Use device set Femoral Dx 10:57:58 Acist Syringe opened to sterile field. 10:57:58 Bag Decanter opened to sterile field. 10:57:59 Medline Cath Pack opened to sterile field. 10:57:59 Terumo 5Fr Sheldon Sheath opened to sterile field. 10:57:59 St Theo 260cm J .035 wire opened to sterile field. 10:58:01 Acist Hand Control opened to sterile field. 10:58:01 Acist Manifold opened to sterile field. 10:58:02 Diagnostic Infinity 5Fr Multipack catheter opened to sterile field. 10:58:02 Tegaderm 4 x 4 opened to sterile field. 10:58:03 Versed 1 mg I.V. was administered by Tracy Hunt RN; for sedation; 10:58:15 Fentanyl 50 mcg I.V. was administered by Tracy Hunt RN; for sedation; 11:00:06 Versed 1 mg I.V. was administered by Tracy Hunt RN; for sedation; 11:00:18 Fentanyl 50 mcg I.V. was administered by Tracy Hunt RN; for sedation; 11:01:46 Zero performed for pressure channel P1 11:02:09 Versed 1 mg I.V. was administered by Tracy Hunt RN; for sedation; 11::16 Fentanyl 50 mcg I.V. was administered by Tracy Hunt RN; for sedation; 11:05:02 Versed 1 mg I.V. was administered by Tracy Hunt RN; for sedation; 11:05:19 Fentanyl 50 mcg I.V. was administered by Tracy Hunt RN; for sedation; 11:16:58 Procedure started. 11:17:27 Local anesthetic to right femoral artery with Lidocaine 2% by Neri Michaels MD.INITIAL ACCESS ONLY 11:17:37 A 5 Fr sheath was inserted into the Right Femoral artery 11:17:55 A Cordis 5Fr Pigtail Catheter (MP) was advanced over the wire and used for LV Angiography. 11:17:59 LV angiography performed. 11:18:00 LV gram done using RODRIGUEZ 11:18:18 Injector settings: Ml/sec: 10, Volume: 20, 11:18:38 EF : 55 % 11:18:42 Catheter removed. 11:18:49 A Cordis 5Fr JL 4.0 Catheter (MP) was advanced over the wire and used for Left Coronary Angiography. 11:18:53 LCA angiography performed. 11:20:02 Catheter removed. 11:20:23 A Cordis 5Fr 3DRC Catheter (MP) was advanced over the wire and used for Right Coronary Angiography. 11:20:26 RCA angiography performed. 11:20:38 Catheter removed. 11:20:43 Contrast amount:Isovue 300 51ml. 11:20:49 Sheath removed intact; hemostasis achieved with Exoseal to the Right Femoral artery. 11:20:57 Cordis 5Fr Exoseal opened to sterile field. 11:21:00 Procedure ended.(Physican Out) 11:22:01 Fluoroscopy time 00.80 minutes. 11:22:06 Fluoroscopy dose: 228 mGy 11:22:06 Flurop Dose total: 228 11:22:07 Sharps counted by scrub and verified by R.N. 11:22:08 Insertion/operative site no bleeding no hematoma. 11:22:11 Post-op/insertion site Right Femoral artery dressed using a 4 x 4 and Tegaderm. 11:22:14 Post right femoral artery:stable 11:22:15 Post Procedure Pulses reassessed and unchanged 11:22:18 Post procedure: right dorsailis pedis pulse 1+ Palpable, but thready & weak; easily obliterated. 11:22:21 Post procedure rhythm: sinus rhythm 11:22:23 Post procedure instruction explained to patient.Patient verbalizes understanding. 11:22:49 Procedure type changed to Cath procedure, Diagnostic procedure, LHC, LHC w/Coronaries, Miscellaneous Procedures, Moderate Sedation up to 30 minutes 11:22:53 Procedure and supply charges have been captured, reviewed, submitted and are correct. 11:23:08 Procedure Complication : No complications 11:23:10 Vital chart was stopped 11:23:10 See physician's report for complete and final results. 11:23:13 Report given to Pre/Post Procedure Room. 11:23:17 Patient transfered to Pre/Post Procedure Room with Stretcher. 11:23:19 Procedure ended. 11:23:19 Full Disclosure recording stopped 11:23:22 End room use (Document Last) Device Usage Item Name Manufacture Quantity Catalog Hospital Part Current Minimal Lo t# / Number Charge Number Stock Stock Serial# Code Acist Acist 1 [id number] [id number] 055128 024957 20 Syringe [employer] Bag Microtek 1 2002S 732577 23580 [id number] 5 [employer] Medline Cardinal 1 [id number] 530829 46906 433530 5 Cath Pack Health Terumo 5Fr Terumo 1 [id number] 381803 906917 224283 [address] [facility] [address] Theo 1 [id number] 191995 116371 500717 30 260cm J .035 wire Acist Hand Acist 1 31337 099105 076241 718557 5 Control [employer] Inc Acist Acist 1 61256 005872 944013 784352 5 Manifold [employer] Diagnostic Cardinal 1 [id number] 162414 13713 116150 30 [facility] 5Fr Multipack catheter Tegaderm 4 3M 1 1626W 390866 739486 458062 5 x 4 Cordis 5Fr Cardinal 1 835555 5 Pigtail Health Catheter (MP) Cordis 5Fr Cardinal 1 614671 5 JL 4.0 Health Catheter (MP) Cordis 5Fr Cardinal 1 653138 5 [facility] Health Catheter (MP) Cordis 5Fr Cardinal 1 EX500 317280 248177 077702 10 [facility] Health Signature Audit Orange Stage Time Signature Unsigned Intra-Procedure 09/24/2016 Hector Rousseau 11:25:31 AM RT(R) Signatures Monitor : Hector Rousseau RT Signature : Date : Time : [facility] [address] [place] [address]
[~2016-09-24 08:54] MED LIST changes: +FLUNISOLIDE29 MCG NASAL
[2016-09-24 09:31] VITALS: BP 156/90; Ht 167.6 cm; Wt 69.1 kg
[2016-09-24 09:42] LABS: BASOPHILS 0.1 % (0-2); EOSINOPHILS 0.9 % (0-7); HEMATOCRIT 40.8 % (42.0-54.0); HEMOGLOBIN 12.8 g/dL (13.5-17.5); IMMATURE GRANULOCYTES 0.3 % (0-5); LYMPHOCYTES 16.4 % (15-50); MCHC 31.4 g/dL (31.0-37.0); MCV 76.5 fL (80.0-100.0); MEAN PLATELET VOLUME 9.2 fL (7.4-10.4); MONOCYTES 15.4 % (2-11); NEUTROPHILS 66.9 % (40-80); PLATELET COUNT 277 10x3/uL (130-400); RBC 5.33 10x6/uL (4.20-6.10); RDW 16.6 % (11.5-14.5); WBC 9.9 10x3/uL (4.8-10.8)
[2016-09-24 09:49] LABS: CARBON DIOXIDE 26.9 mmol/L (21.0-32.0); CREATININE - SERUM 1.1 mg/dL (0.6-1.3); POTASSIUM - SERUM 3.9 mmol/L (3.5-5.1)
--- NOTE | 2016-09-24 11:45 | NUR ---
RIGHT GROIN CDI, NO HEMATOMA OR BLEEDING NOTED, AT SIDE
--- NOTE | 2016-09-24 12:15 | NUR ---
SANDWICH AND COLA SERVED, REMINDED TO KEEP HEAD ON PILLOW AND RIGHT LEG STRAIGHT, AT SIDE ASSISTING
== END 2016-09-24 13:30 | disposition home or self-care (01) ==
LOC: D.CATH 08:54
PROVIDERS: Internal Medicine Interventional Cardiology
DX: I25.119 Atherosclerotic heart disease of native coronary artery with unspecified angina pectoris (principal); Z95.5 Presence of coronary angioplasty implant and graft; Z01.812 Encounter for preprocedural laboratory examination

== ENCOUNTER → 2017-05-15 12:58 | Outpatient (CLI) | payer MEDICARE, BC ==
[2016-09-24 09:31] VITALS: BMI 24.5
== END | disposition home or self-care (01) ==
LOC: D.US 12:58
DX: I65.23 Occlusion and stenosis of bilateral carotid arteries (principal)

== ENCOUNTER → 2017-12-17 08:37 | Outpatient (CLI) | payer MEDICARE, BC ==
[~2017-12-17] VITALS: Ht 167.6 cm; Wt 67.3 kg
--- NOTE | ~2017-12-17 | HEMODYNAMI ---
PATIENT:TYREE ALICIA MEDICAL RECORD: [id number] : 41 LOCATION:[facility] ADMISSION DATE: 12/17/17 Generatedon:12/17/201713:28 Patient name: TYREE ALICIA Patient #: [id number] : 1945 Date of study: 12/17/2017 Page: Of Hemodynamic Procedure Report Patient Data Patient Demographics Procedure consent was obtained First Name: TYREE Gender: Male Last Name: RAVIN : 1945 [facility] Initial: J Age: 72 year(s) Patient #: [id number] Race: SSN: [id number] Additional ID: [id number] Contact details Address: [address] [place] [address] State: [place] City: [place] Zip code: [address] Past Medical History History of disease Date Diagnosis Comments CAD Allergies Allergen Reaction Date Comments Reported Other allergy 04/12/2015 Isosorbide Codeine 09/24/2016 Admission Admission Data Admission Date: 12/17/2017 Admission Time: 8:37 Procedure Procedure Types Cath Procedure Diagnostic Procedure C [facility] w/Coronaries Sedation Charges Moderate Sedation up to 15 minutes PCI Procedure Coronary Atherectomy Atherectomy w/Stent Coronary Initial Peripheral Cath Diagnostic Procedure Cto Peripheral Procedures Dtxol-Qfmldoo-Weq-Off Procedure Description Procedure Date Procedure Date: 12/17/2017 Procedure Start Time: 12:51 Procedure End Time: 13:23 Procedure Staff Name Function Neri Michaels MD Performing Physician Claudine Trevino RT Monitor Elsy Baez RT Scrub Vishal Lester RN Nurse Procedure Data Cath Procedure Fluoroscopy Diagnostic fluoroscopy Total fluoroscopy Time: 8.5 time: 8.5 min min Diagnostic fluoroscopy Total fluoroscopy dose: dose: 1368 mGy 1368 mGy Contrast Material Contrast Material Type Amount (ml) Isovue 300 171 Entry Location Entry Primary Successful Side Size Upsize Upsize Entry Closure Succes sful Closure Location (Fr) 1 (Fr) 2 (Fr) Remarks Device Remarks Femoral Right 5 Fr 6 Fr 6 Fr Exoseal artery Long Short Estimated blood loss: 5 ml Diagnostic catheters Device Type Used For End Catheter Placement MULTIPACK Pigtail 5 Fr Procedure catheter MULTIPACK 3DRC 5Fr Right Coronary catheter Angiography MULTIPACK JL 4.0 5Fr Left Coronary catheter Angiography Procedure Complications No complications Procedure Medications Medication Administration Route Dosage Oxygen etCO2 Nasal cannula 2 l/min Heparin Flush Bag added to field 2 bags (1000units/500ml NS) 0.9% NaCl I.V. 100 ml/hr Fentanyl I.V. 50 mcg Versed I.V. 1 mg Fentanyl I.V. 50 mcg Versed I.V. 1 mg Fentanyl I.V. 50 mcg Versed I.V. 1 mg Heparin Bolus I.V. 4000 units Fentanyl I.V. 50 mcg Versed I.V. 1 mg Hemodynamics Rest Heart Rate: 75 (bpm) Snapshots Pre Cath Intra NCS Post Cath Vital Signs Time Heart Resp SPO2 etCO2 NIBP (mmHg) Rhythm Pain Sedation Rate (ipm) (%) (mmHg) Status Level (bpm) 12:01:37 98 25.5 164/93(129) NSR 0 (11) 10(A) , No pain 12:05:51 76 16 99 27.7 162/93(131) NSR 0 (11) 10(A) , No pain 12:10:09 76 16 98 29.3 160/89(132) NSR 0 (11) 10(A) , No pain 12:14:29 73 16 99 30 154/82(108) NSR 0 (11) 10(A) , No pain 12:18:51 72 16 99 0 139/70(101) NSR 0 (11) 10(A) , No pain 12:23:05 70 16 100 0 134/76(105) NSR 0 (11) 10(A) , No pain 12:27:19 71 17 100 18 133/73(111) NSR 0 (11) 10(A) , No pain 12:31:31 70 16 99 0 132/74(104) NSR 0 (11) 10(A) , No pain 12:35:41 71 17 99 0 138/76(101) NSR 0 (11) 10(A) , No pain 12:39:55 70 16 100 0 135/77(107) NSR 0 (11) 10(A) , No pain 12:44:06 72 17 100 0 147/78(109) NSR 0 (11) 10(A) , No pain 12:48:23 77 17 99 28.5 136/79(110) NSR 0 (11) 10(A) , No pain 12:52:36 72 17 99 9 145/75(118) NSR 0 (11) 9(A) , No pain 12:56:55 73 16 98 0 119/66(96) NSR 0 (11) 9(A) , No pain 13:01:03 74 16 98 0 123/74(94) NSR 0 (11) 9(A) , No pain 13:05:12 75 17 98 0 120/72(91) NSR 0 (11) 9(A) , No pain 13:09:22 74 16 98 0 117/69(101) NSR 0 (11) 9(A) , No pain 13:13:28 74 17 98 0 119/75(93) NSR 0 (11) 9(A) , No pain 13:17:34 78 16 97 0 139/76(108) NSR 0 (11) 9(A) , No pain 13:21:48 79 16 98 0 139/78(108) NSR 0 (11) 9(A) , No pain 13:26:14 77 17 99 17.2 136/76(108) NSR 0 (11) 10(A) , No pain Medications Time Medication Route Dose Verified Delivered Reason Notes Effectiveness by by 12:01:00 Oxygen etCO2 2 Neri Rodgers Per physician Nasal l/min Brando Lester RN cannula 12:01:08 Heparin Flush added 2 Neri Rodgers used for Bag to bags Brando Lester RN procedure (1000units/500ml field NS) 12:01:19 0.9% NaCl I.V. 100 Neri Rodgers Per physician ml/hr Brando Lester RN 12:48:26 Fentanyl I.V. 50 Neri Rodgers for sedation mcg Brando Lester RN 12:48:33 Versed I.V. 1 mg Neri Rodgers for sedation Brando Lester RN 12:51:50 Fentanyl I.V. 50 Neri Rodgers for sedation mcg Brando Lester RN 12:51:55 Versed I.V. 1 mg Neri Rodgers for sedation Brando Lester RN 13:01:55 Fentanyl I.V. 50 Neri Rodgers for sedation mcg Brando Lester RN 13:02:00 Versed I.V. 1 mg Neri Rodgers for sedation Brando Lester RN 13:02:13 Heparin Bolus I.V. 4000 Neri Rodgers for units Brando Lester RN anticoagulation 13:06:06 Fentanyl I.V. 50 Neri Rodgers for sedation mcg Brando Lester RN 13:06:11 Versed I.V. 1 mg Neri Rodgers for sedation Brando Lester RN Procedure Log Time Note 11:46:28 Diagnostic Cath Status : Elective 11:46:47 Vishal Lester RN sent for patient. Start room use. 11:46:48 Time tracking: Regular hours (M-F 7:00 - 5:00) 11:46:52 Plan of Care:Hemodynamics will remain stable., Cardiac rhythm will remain stable., Comfort level will be maintained., Respiratory function will remain adequate., Patient/ family verbilizes understanding of procedure., Procedure tolerated without complication., Recovers from procedure without complications.. 12:00:28 Vital chart was started 12:01:00 Oxygen 2 l/min etCO2 Nasal cannula was administered by Vishal Lester RN; Per physician; 12:01:08 Heparin Flush Bag (1000units/500ml NS) 2 bags added to field was administered by Vishal Lester RN; used for procedure; 12:01:19 0.9% NaCl 100 ml/hr I.V. was administered by Vishal Lester RN; Per physician; 12:03:14 Patient received from Pre/Post Procedure Room to CCL 2 Alert and oriented. Tansferred to table in Supine position. 12:03:15 Warm blankets applied, and tenisha hugger turned on for patient comfort. 12:03:15 Correct patient and procedure confirmed by team. 12:03:16 Signed procedure consent form obtained from patient. 12:03:17 ECG and BP/O2 sat monitors applied to patient. 12:05:22 Baseline sample Acquired. 12:05:31 Full Disclosure recording started 12:05:35 H&P Date Dictated: 12/17/2017 New H&P dictated by physician.. 12:05:36 Pre-procedure instructions explained to patient. 12:05:36 Pre-op teaching completed and patient verbalized understanding. 12:05:38 Family in waiting room. 12:05:39 Patient NPO since Midnight. 12:05:41 Is the patient allergic to Iodine/contrast media? No. 12:05:42 Was the patient premedicated? No 12:09:56 Is patient on blood thinner?Yes 12:10:01 ACC The patient was administered the following blood thiners within the last 24 hours: ACCPlavix 12:10:03 Patient diabetic? No. 12:10:06 Previous problem with sedation/anesthesia? No ? 12:10:07 Snore? Yes 12:10:08 Sleep apnea? No 12:10:09 Deviated septum? No 12:10:10 Opens mouth fully? Yes 12:10:10 Sticks out tongue? Yes 12:10:26 Airway obstruction? Yes coughs up a lot of Phlegm 12:10:28 Dentures? No ? 12:11:48 Baseline sample Acquired. 12:13:27 Pre procedure: right dorsailis pedis pulse 1+ Palpable, but thready & weak; easily obliterated 12:13:29 Pre procedure: left dorsailis pedis pulse 1+ Palpable, but thready & weak; easily obliterated 12:13:32 Patient pain scale 0/10 ?. 12:13:48 IV started by Vishal Lester RN inleft hand with a 22 gauge IV catheter with 0.9% NaCl at KVO. 12:13:50 Lab results completed and on chart. 12:13:56 Bilateral groins area was prepped with chlora-prep and draped in sterile fashion 12:13:57 Alarms reviewed by R. N. 12:13:58 Sharps counted by scrub and verified by R.N. 12:17:17 Physician paged 12:43:19 Physician arrived 12:43:20 --------ALL STOP TIME OUT------ 12:43:20 Final Timeout: patient, procedure, and site verified with staff and physician. All members of the team are in agreement. 12:43:24 Bilateral groins site verified by team. 12:43:26 Physical assessment completed. ASA score P 2 - A patient with mild systemic disease as per Neri Michaels MD. 12:43:30 Sedation plan: IV Moderate Sedation Medication:Versed, Fentanyl 12:43:36 Use device set Femoral Dx 12:43:38 ACIST Syringe (87183) opened to sterile field. 12:43:38 Bag Decanter (2002S) opened to sterile field. 12:43:38 Medline Cath Pack ([id number]) opened to sterile field. 12:43:39 DIAGNOSTIC WIRE .035 260cm J wire (134761) opened to sterile field. 12:43:40 ACIST Hand Control (78407) opened to sterile field. 12:43:41 ACIST Manifold (59041) opened to sterile field. 12:43:41 DIAGNOSTIC Multipack 5Fr catheter set (ED3355) opened to sterile field. 12:43:42 Tegaderm 4 x 4 (1626W) opened to sterile field. 12:43:43 SHEATH Prelude 5Fr 0.035 (MCC-9J-74-035) opened to sterile field. 12:48:26 Fentanyl 50 mcg I.V. was administered by Vishal Lester RN; for sedation; 12:48:33 Versed 1 mg I.V. was administered by Vishal Lester RN; for sedation; 12:50:20 Zero performed for pressure channel P1 12:51:50 Fentanyl 50 mcg I.V. was administered by Vishal Lester RN; for sedation; 12:51:50 Procedure started. 12:51:54 Local anesthetic to right femoral artery with Lidocaine 2% by Neri Michaels MD.INITIAL ACCESS ONLY 12:51:55 Versed 1 mg I.V. was administered by Vishal Lester RN; for sedation; 12:53:04 A 5 Fr sheath was inserted into the Right Femoral artery 12:53:14 A MULTIPACK Pigtail 5 Fr catheter was advanced over the wire and used for Procedure. 12:53:34 LV angiography performed. 12:53:36 LV gram done using RODRIGUEZ 12:53:42 EF : 60 % 12:53:50 Injector settings: Ml/sec: 10, Volume: 20, 12:54:35 Abdominal Aortagram was performed. 12:54:45 Right leg runoff performed. 12:54:47 Left leg runoff performed. 12:55:08 Catheter removed. 12:57:32 GLIDE WIRE ANGLE 260cm (UE8119) opened to sterile field. 12:57:43 SHEATH 6FR Brite Tip 35cm (900660R) opened to sterile field. 12:57:59 A MULTIPACK 3DRC 5Fr catheter was advanced over the wire and used for Right Coronary Angiography. 12:58:27 RCA angiography performed. 12:58:30 Injector settings: Ml/sec: 3, Volume: 6, 12:58:33 Catheter removed. 12:58:41 A MULTIPACK JL 4.0 5Fr catheter was advanced over the wire and used for Left Coronary Angiography. 12:59:32 LCA angiography performed. 12:59:35 Injector settings: Ml/sec: 3, Volume: 6, 13:00:04 Catheter removed. 13:00:07 Proceeding to intervention. 13:00:32 SHEATH Prelude 6Fr 0.035 (UVR-8A-14-035) opened to sterile field. 13:00:44 Sheath upsized to a 6 Fr Long. 13:00:55 LASER ELCA 0.9 Rx atherectomy catheter (084020) opened to sterile field. 13:01:11 GUIDE 6FR XBLAD 4.0 catheter ([id number]) opened to sterile field. 13:01:35 CHOICE PT Extra Support 182cm wire ([id number]) opened to sterile field. 13:01:55 Fentanyl 50 mcg I.V. was administered by Vishal Lester RN; for sedation; 13:02:00 Versed 1 mg I.V. was administered by Vishal Lester RN; for sedation; 13:02:13 Heparin Bolus 4000 units I.V. was administered by Vishal Lester RN; for anticoagulation; 13:03:29 6 Fr xblad 4 guide catheter was inserted over the wire 13:05:11 0.9 Laser catheter inserted over choice pt extra support 13:05:15 Laser pass to mLAD with Fluence of 80 and Rate of 40. 13:06:06 Fentanyl 50 mcg I.V. was administered by Vishal Lester RN; for sedation; 13:06:11 Versed 1 mg I.V. was administered by Vishal Lester RN; for sedation; 13:14:58 Laser catheter removed. 13:15:34 Place stent Inflation Number: 1 A LIZZIE RX 3.0 x 18 stent ([id number]) was prepped and advanced across the Mid LAD. The stent was deployed at 17 BELINDA for 0:10 (min:sec). 13:16:03 Inflation number: 1 The stent balloon was then re-inflated across the Prox LAD to 21 BELINDA for 0:10 (min:sec). 13:17:12 Stent catheter was removed intact over wire. 13:20:14 Sheath upsized to a 6 Fr Short. 13:21:07 Sheath removed intact; hemostasis achieved with Exoseal to the Right Femoral artery. 13:21:18 Procedure ended.(Physican Out) 13:21:27 Fluoroscopy time 08.50 minutes. 13:21:32 Flurop Dose total: 1368 13:21:32 Fluoroscopy dose: 1368 mGy 13:21:50 Contrast amount:Isovue 300 171ml. 13:21:51 Sharps counted by scrub and verified by R.N. 13:22:03 Insertion/operative site no bleeding no hematoma. 13:22:06 Post-op/insertion site Right Femoral artery dressed using a 4 x 4 and Tegaderm. 13:22:09 Post right femoral artery:stable 13:22:10 Post Procedure Pulses reassessed and unchanged 13:22:12 Post procedure rhythm: unchanged. 13:22:14 Estimated blood loss: 5 ml 13:22:16 Post procedure instruction explained to patient.Patient verbalizes understanding. 13:22:16 Patient needs reinforcement of post procedure teaching. 13:23:07 Procedure type changed to Cath procedure, Diagnostic procedure, LHC, LHC w/Coronaries, Sedation Charges, Moderate Sedation up to 15 minutes, PCI procedure, Coronary Atherectomy, Atherectomy w/Stent Coronary Initial, Peripheral Cath Diagnostic Procedure, Cto Peripheral Procedures, Sisui-Yhfevqh-Wit-Off 13:23:08 Procedure and supply charges have been captured, reviewed, submitted and are correct. 13:23:13 Procedure Complication : No complications 13:23:16 Vital chart was stopped 13:23:17 See physician's report for complete and final results. 13:23:31 Report given to Pre/Post Procedure Room. 13:23:34 Patient transfered to Pre/Post Procedure Room with Stretcher. 13:23:38 Procedure ended. 13:23:38 Full Disclosure recording stopped 13:23:44 ACC-PCI Only Patient was given prescriptions, or instructed by Neri Michaels MD to start/continue the following medications upon discharge: Plavix 13:23:46 End room use (Document Last) 13:25:06 EXOSEAL 6Fr (EX600) opened to sterile field. 13:26:38 Laser total pulses delivered: 2800 13:26:44 Laser total treatment time: 1 minutes 10 seconds Intervention Summary Intervention Notes Time ActionType Lesion and Equipment Used Action# Pressure Duration Attributes 13:15:34 Place stent Mid LAD LIZZIE RX 3.0 x 1 17 00:10 18 stent ([id number]) 13:16:03 Reinflate Prox LAD LIZZIE RX 3.0 x 1 21 00:10 stent 18 stent balloon ([id number]) Device Usage Item Name Manufacture Quantity Catalog Number Hospital Part Current Minimal Lot# / Charge Number Stock Stock Serial# Code ACIST Syringe Acist 1 31384 238974 932580 385226 20 (71100) Medical Systems Inc Bag Decanter Microtek 1 508331 89893 503929 5 () Medical Inc. Medline Cath Cardinal 1 [id number] 569688 14937 052805 5 Pack Health ([id number]) DIAGNOSTIC WIRE St Theo 1 767627 310649 732392 100026 30 .035 260cm J wire (447050) ACIST Hand Acist 1 15128 344489 277719 675010 5 Control (20958) [employer] Inc ACIST Manifold Acist 1 13279 620066 207352 518865 5 (60120) [employer] Inc DIAGNOSTIC Cardinal 1 EY3248 958178 69543 833076 30 Multipack 5Fr Health catheter set (ZH5400) Tegaderm 4 x 4 3M 1 1626W 961711 724754 995346 5 (1626W) SHEATH Prelude Merit 1 WFD-6T-82-035 201963 335496 854743 5 5Fr 0.035 Medical (AIC-3Y-66-035) MULTIPACK Cardinal 1 302070 5 Pigtail 5 Fr Health catheter GLIDE WIRE Terumo 1 BH4367 951556 219003 772503 5 ANGLE 260cm (CF1899) SHEATH 6FR Cardinal 1 [id number] 603288 542367 429337 1 Brite Tip 35cm Health (530551T) MULTIPACK 3DRC Cardinal 1 293660 5 5Fr catheter Health MULTIPACK JL Cardinal 1 936908 5 4.0 5Fr Health catheter SHEATH Prelude Merit 1 XKO-5B-87-35 473530 0602497 723615 5 6Fr 0.035 Medical (WGX-8S-08-035) LASER ELCA 0.9 Janae 1 110-004 650356 334057 976885 5 Rx atherectomy Healthcare catheter (875182) (837279) GUIDE 6FR XBLAD Cardinal 1 26962537 269095 173619 592432 3 4.0 catheter Em[employer] Solutions (74647208) CHOICE PT Extra Henderson 1 [id number] 833827 982902 148487 5 Support 182cm Scientific wire ([id number]) LIZZIE RX 3.0 x Medtronic 1 [id number] 213201 4952170 926411 5 [id number] 18 stent ([id number]) EXOSEAL 6Fr Cardinal 1 EX600 309036 547713 423891 10 (EX600) Health Signature Audit [place] Stage Time Signature Unsigned Intra-Procedure 12/17/2017 Claudine Trevino 1:28:05 PM RT(R) Signatures Monitor : Claudine Trevino RT Signature : Date : Time : [address] [place] [address]
--- NOTE | ~2017-12-17 | OP ---
PATIENT NAME: TYREE ALICIA MEDICAL RECORD: [id number] :41 LOCATION:D.CAT ADMISSION DATE: SURGEON: JING ERVIN MD DATE OF OPERATION: 12/17/2017 PROCEDURES: 1. Aortofemoral runoff. 2. Abdominal aortography. INDICATION: Claudication and peripheral vascular disease. PROCEDURE IN DETAIL: After informed consent was obtained and after a detailed description of the risks, benefits as well as alternative therapies, the patient elected to proceed with angiogram and angioplasty. The right femoral area had a preexisting sheath from coronary intervention. All catheters exchanged through this sheath. FINDINGS: Abdominal aortography was performed. The catheter was pulled down for aortofemoral runoff. Abdominal aortography reveals no significant abdominal aortic disease, no dissection or aneurysm formation. No renal artery stenosis. RIGHT LEG: A. Iliac: The common internal and external iliacs have neco-cu-fbrxuihg irregularities, but no flow-limiting stenosis. B. Femoral system: The common superficial and deep femoral have moderate irregularities, but no flow-limiting stenosis. C. Popliteal and infrapopliteal vessels are patent, although diffusely diseased, giving 3-vessel runoff to the foot. LEFT LEG: A. Iliac: The common internal and external iliacs have eivu-nr-yzccmiod irregularities, but no flow-limiting stenosis. B. Femoral system: The common superficial and deep femoral have moderate irregularities, but no flow-limiting stenosis. C. Popliteal and infrapopliteal vessels are patent, although diffusely diseased, giving 3-vessel runoff to the foot. OVERALL IMPRESSION: Minimal peripheral vascular disease is present. No flow limiting stenosis, leg pain is not secondary to arterial vascular insufficiency. TRANSINT:[id number] Voice Confirmation ID: [id number] DOCUMENT ID: [id number] JING ERVIN MD at 0924 CC: [id number] DICTATION DATE: 12/17/17 1326 DOOR AND ARRIVAL ATTENDANT: 12/17/17 1341 DEP CLI 12/17/[address] [address]
--- NOTE | ~2017-12-17 | OP ---
PATIENT NAME: TYREE ALICIA MEDICAL RECORD: [id number] :41 LOCATION:D.CAT ADMISSION DATE: SURGEON: JING ERVIN MD DATE OF OPERATION: 12/17/2017 PROCEDURES: 1. Laser atherectomy, PTCA stent LAD. 2. Left heart catheterization. 3. Selective coronary angiography. 4. Vein graft angiography. 5. Left ventriculogram. INDICATION: Angina and coronary artery disease. PROCEDURE IN DETAIL: After informed consent was obtained and after a detailed description of risks, benefits as well as alternative therapies, the patient elected to proceed with angiogram and angioplasty. The right femoral area was prepped and draped in normal sterile fashion. Right femoral artery was cannulated via modified Seldinger technique with placement of 6-Chadian sheath. All catheters exchanged through this sheath. FINDINGS: Left ventriculogram was performed in normal standard 30-degree RODRIGUEZ view, reveals preserved cardiac wall motion, ejection fraction 50%. SELECTIVE CORONARY ANGIOGRAPHY: 1. Left main is with no significant angiographic disease. 2. Left anterior descending has multiple previously placed stents. There is 99% in-stent restenosis in the mid vessel. 3. The left circumflex is totally occluded. 4. Vein graft to circumflex is widely patent. Distal circumflex is widely patent. 5. Right coronary artery has moderate irregularities, but no flow-limiting stenosis. LASER ATHERECTOMY, PTCA STENT OF THE LAD: The laser catheter was used. Multiple passes were made for the 0.9 catheter at 80/40. Stenting was undertaken with a 3.0 x 18 Yobani stent. Result was 0% residual stenosis. OVERALL IMPRESSION: Successful PTCA stent, laser atherectomy of the left anterior descending going from 99% initial stenosis to 0% residual. TRANSINT:[id number] Voice Confirmation ID: [id number] DOCUMENT ID: [id number] JING ERVIN MD at 0924 CC: [id number] DICTATION DATE: 12/17/17 1326 ONLINE BANKING SPECIALIST: 12/17/17 1341 DEP CLI 12/17/[address] [address]
--- NOTE | ~2017-12-17 | HP ---
PATIENT: TYREE ALICIA MEDICAL RECORD: [id number] ACCOUNT: [id number] LOCATION:[facility] : 41 ADMISSION DATE: 12/17/17 PCP: MONISHA STARK MD HISTORY AND PHYSICAL EXAMINATION DIAGNOSES: 1. Unstable angina. 2. Sick sinus syndrome, status post pacemaker. 3. Paroxysmal atrial fibrillation. 4. Coronary artery disease. 5. Previous multivessel percutaneous transluminal coronary angioplasty stent. 6. Hypertension. 7. Gastroesophageal reflux disease. HISTORY OF PRESENT ILLNESS: Mr. Alicia presents with increasing anginal symptomatology. Does have a past history of coronary artery disease, multivessel PTCA stent. His chest pain is just like that of his previous angina. REVIEW OF SYSTEMS: The patient reports easy bruising but reports no swollen glands. The patient reports no fever, no night sweats, no significant weight gain, no significant weight loss. No significant exercise tolerance. The patient reports no dry eyes, no irritation, no vision change. Patient reports no difficulty hearing and no ear pain. Patient reports no frequent nose bleeds or nose and sinus problems. Patient reports on arm pain on exertion. No shortness of breath while lying down. No history of heart murmur. Patient reports no cough, no wheezing or coughing up blood. Patient reports no abdominal pain, no vomiting. Normal appetite. No diarrhea and not vomiting blood. No nausea and no constipation. Patient reports no incontinence. No difficulty urinating. No hematuria. No increased frequency. Patient reports no muscle aches. No weakness, no arthralgias, no back pain. No swelling of the extremities. Patient reports no abnormal mole, no jaundice, no rashes. Reports no loss of consciousness. No weakness and no numbness. No seizures, dizziness, or headaches. The patient reports no depression, no sleep disturbance, feeling safe in a relationship and no alcohol abuse. Patient reports on fatigue. Reports no runny nose or sinus pressure. No itching, no hives, and no frequent sneezing. PHYSICAL EXAMINATION: GENERAL APPEARANCE: Well-nourished, well-developed, appears stated age. Level of distress, comfortable. PSYCHIATRIC: Mental status, alert, normal affect. Orientation, oriented to time, place and person. EYES: Lids and conjunctiva, noninjected. No discharge, no pallor. ENT: Lips, teeth, gums, normal dentition. Oropharynx, no cyanosis, no pallor. NECK: Carotid arteries, bilateral normal upstroke, no bruits, no thrills. JUGULAR VEINS: No jugular venous pressure or distention. CERVICAL LYMPH NODES: Nontender, nonenlarged. THYROID: Not enlarged. Nontender. No nodules. LUNGS: Respiratory effort, unlabored. CHEST: Normal curvature. No thoracic deformity. No chest wall tenderness. Percussion, resonant. Auscultation, clear. No wheezes, no rales, no rhonchi. CARDIOVASCULAR: Precordial exam, nondisplaced. No heaves or pericardial thrills. Rate and rhythm, regular. Heart sounds, normal S1, normal S2. No S3, no gallop, no rub. Systolic murmur, not heard. Diastolic murmur, not heard. HISTORY AND PHYSICAL [id number] TYREE ALICIA EXTREMITIES: No cyanosis, no edema. Peripheral pulses, full and equal in all extremities, except as noted. No bruits appreciated. ABDOMEN: Soft, nondistended. Normal aorta. No bruit. Nontender. No masses. Liver, nontender, no hepatomegaly. Spleen, nontender, no splenomegaly. MUSCULOSKELETAL: No joint tenderness. No joint swelling. No erythema. NEUROLOGICAL: Normal gait, normal strength, normal tone. SKIN: Warm and dry. OVERALL IMPRESSION: Unstable angina in escalating fashion. We will proceed with coronary angiography. Further care depends upon findings of the angiography. TRANSINT:[id number] Voice Confirmation ID: [id number] DOCUMENT ID: [id number] JING ERVIN MD at 0803 CC: [id number] DICTATION DATE: 12/17/17 1007 HOUSE DETECTIVE: 12/17/17 1043 DEP CLI 12/17/17 [facility] [address] [place] [address]
[~2017-12-17 08:37] MED LIST changes: +NEURONTIN600 MG PO; +PACERONE200 MG PO
[2017-12-17 09:09] VITALS: BP 139/73; Ht 167.6 cm; Wt 67.3 kg
[2017-12-17 09:21] LABS: HEMATOCRIT 31.9 % (42.0-54.0); HEMOGLOBIN 9.4 g/dL (13.5-17.5); LYMPHOCYTES 19.5 % (15-50); MCH 20.8 pg (26.0-34.0); MCHC 29.5 g/dL (31.0-37.0); MCV 70.4 fL (80.0-100.0); MEAN PLATELET VOLUME 8.2 fL (7.4-10.4); NEUTROPHILS 66.2 % (40-80); PLATELET COUNT 310 10x3/uL (130-400); RBC 4.53 10x6/uL (4.20-6.10); RDW 18.6 % (11.5-14.5); WBC 7.9 10x3/uL (4.8-10.8)
[2017-12-17 09:25] LABS: ANION GAP 13.1 mmol/L (8-16); CALCIUM 8.7 mg/dL (8.5-10.1); CARBON DIOXIDE 22.4 mmol/L (21.0-32.0); CREATININE - SERUM 1.3 mg/dL (0.6-1.3); POTASSIUM - SERUM 4.5 mmol/L (3.5-5.1)
== END | disposition home or self-care (01) ==
LOC: D.CATH 08:37
PROVIDERS: Internal Medicine Interventional Cardiology
DX: I25.110 Atherosclerotic heart disease of native coronary artery with unstable angina pectoris (principal); T82.855A Stenosis of coronary artery stent, initial encounter; M79.605 Pain in left leg; M79.604 Pain in right leg; I49.5 Sick sinus syndrome; Z95.0 Presence of cardiac pacemaker; I48.0 Paroxysmal atrial fibrillation; I10 Essential (primary) hypertension; K21.9 Gastro-esophageal reflux disease without esophagitis; Z01.812 Encounter for preprocedural laboratory examination
CPT/HCPCS: 93459; C9602

== ENCOUNTER 2018-08-11 18:27 | Observation (INO) | payer MEDICARE, BC ==
[~2018-08-11] VITALS: Ht 167.6 cm; Wt 76.7 kg
[2018-08-11 18:58] LABS: HEMATOCRIT 39.7 % (42.0-54.0); HEMOGLOBIN 13.2 g/dL (13.5-17.5); MCH 30.5 pg (26.0-34.0); MCHC 33.2 g/dL (31.0-37.0); MCV 91.7 fL (80.0-100.0); MEAN PLATELET VOLUME 10.8 fL (7.4-10.4); RBC 4.33 10x6/uL (4.20-6.10); RDW 19.4 % (11.5-14.5); WBC 3.2 10x3/uL (4.8-10.8)
[2018-08-11 19:04] LABS: APTT 23.3 SECONDS (22.8-39.4); INR 0.96 (0.85-1.17); PROTIME 12.3 SECONDS (11.6-15.0)
[2018-08-11 19:08] LABS: PLATELET COUNT 31 10x3/uL (130-400)
[2018-08-11 19:10] LABS: ALKALINE PHOSPHATASE 98 U/L (46-116); ALT (SGPT) 86 U/L (10-68); BILIRUBIN - TOTAL 0.68 mg/dL (0.2-1.3); CALC OSMOLALITY 272 mosm/kg (275-300); CALCIUM 8.7 mg/dL (8.5-10.1); CARBON DIOXIDE 26.4 mmol/L (21.0-32.0); CHLORIDE - SERUM 101 mmol/L (98-107); CREATININE - SERUM 1.1 mg/dL (0.6-1.3); GLUCOSE 81 mg/dL (74-106); POTASSIUM - SERUM 4.4 mmol/L (3.5-5.1); PROTEIN - SERUM 6.8 g/dL (6.4-8.2); SODIUM 136 mmol/L (136-145); UREA NITROGEN 19 mg/dL (7-18); eGFR NON AFRICAN AMERICAN 69 mL/min (90-120)
[2018-08-11 19:21] LABS: CKMB 0.8 U/L (0.0-3.6); CREATINE KINASE 17 UL (21-232); MAGNESIUM - SERUM 1.6 mg/dL (1.8-2.4); TROPONIN-I < 0.017 ng/mL (0.000-0.060)
[2018-08-11 19:57] LABS: BASOPHILS 3 % (0-2); LYMPHOCYTES 70 % (15-50); MONOCYTES 5 % (2-11); NEUTROPHILS 11 % (40-80)
[2018-08-11 19:58] LABS: PLATELET ESTIMATE DECREASED
[2018-08-11 20:31] VITALS: BP 131/80
[2018-08-11] MEDS ORDERED: ZOFRAN8 MG (23:59)
[2018-08-12] VITALS (7 sets, daily range): BP systolic 106–149; BP diastolic 48–84; Ht 167.6 cm; Wt 76.7 kg
[2018-08-12] MEDS ORDERED: TOBREX5 ML
[2018-08-12] MEDS ORDERED: MONODOX100 MG
[2018-08-12] MEDS ORDERED: MEDROL DOSE PACK4 MG
--- NOTE | 2018-08-12 | NUR ---
RECIEVED TRANFER REPORT FROM AKIN MYLES, PT ARRIVED ON WHEELCHAIR, VSS, AAOX4, @BEDSIDE. PIV 20G L.HAND SL, PATENT. PT DENIES ANY CHEST PAIN ON ADMISSION, STATES HE ONLY FEELS JUST A LITTLE PRESSURE. LOVENOX GIVEN IN E.R PRIOR TO ADMISSION TO THE UNIT. NITRO-PASTE TO LEFT CHEST INTACT. ADMISSION ASSESSMENT COMPLETED. PT IS A GOOD HISTORIAN. PT DENIES ANY FUTHER NEED FOR COMFORT CARE @ THIS TIME. STATES HE WILL NOTIFY ME IF HE FEELS ANY CHANGES. TELEMETRY ON. PT PACED @ 75. CL IN REACH, BED IN LOW, SR UP X2.
[2018-08-12 05:52] LABS: HEMATOCRIT 33.7 % (42.0-54.0); HEMOGLOBIN 11.2 g/dL (13.5-17.5); MCH 30.4 pg (26.0-34.0); MCHC 33.2 g/dL (31.0-37.0); MCV 91.6 fL (80.0-100.0); MEAN PLATELET VOLUME 11.5 fL (7.4-10.4); RBC 3.68 10x6/uL (4.20-6.10); RDW 19.5 % (11.5-14.5); WBC 3.5 10x3/uL (4.8-10.8)
[2018-08-12 06:04] LABS: ALBUMIN 2.4 g/dL (3.4-5.0); ALKALINE PHOSPHATASE 84 U/L (46-116); ALT (SGPT) 70 U/L (10-68); BILIRUBIN - TOTAL 0.34 mg/dL (0.2-1.3); CALC OSMOLALITY 279 mosm/kg (275-300); CALCIUM 8.1 mg/dL (8.5-10.1); CARBON DIOXIDE 23.4 mmol/L (21.0-32.0); CHLORIDE - SERUM 107 mmol/L (98-107); CKMB 0.7 U/L (0.0-3.6); CREATINE KINASE 16 UL (21-232); GLUCOSE 71 mg/dL (74-106); PROTEIN - SERUM 5.6 g/dL (6.4-8.2); SODIUM 140 mmol/L (136-145); TROPONIN-I < 0.017 ng/mL (0.000-0.060); UREA NITROGEN 21 mg/dL (7-18); eGFR NON AFRICAN AMERICAN 77 mL/min (90-120)
[2018-08-12 06:12] LABS: POTASSIUM - SERUM 3.5 mmol/L (3.5-5.1)
[2018-08-12 06:28] LABS: PLATELET COUNT 25 10x3/uL (130-400)
--- NOTE | 2018-08-12 07:15 | NUR ---
RECEIVED PT IN BED EYES CLOSED RESP UNLABORED SKIN W/D COLOR WNL NAD NOTED AT BEDSIDE WILL CONTINUE TO MONITOR
[2018-08-12 08:43] LABS: EOSINOPHILS 1 % (0-7); LYMPHOCYTES 35 % (15-50); MONOCYTES 21 % (2-11); NEUTROPHILS 39 % (40-80); PLATELET ESTIMATE DECREASED
[2018-08-12 08:44] LABS: ANISOCYTOSIS OCC; HYPOCHROMASIA OCC
[2018-08-12] MEDS ORDERED: RANEXA500 MG PO (18:08)
--- NOTE | 2018-08-12 19:18 | NUR ---
RESUMING PATIENT CARE. PATIENT IS ALEET AND ORIENTED, RESTING COMFORTABLY IN BED. RESPIRATIONS ARE EVEN AND UNLABORED. NO S/S OF DISTRESS. NO C/O PAIN. NEEDS MET. CALL IGHT WITHIN REACH. WILL CPOC.
--- NOTE | 2018-08-12 22:29 | NUR ---
WENT TO GIVE PATIENT HIS HS MEDICATIONS. WHILE SCANNING AND GOING THROUGH THEM, PATIENT STATED, SHE HAD ALREADY GIVEN HIM IS NIGHT MEDICATIONS. EXPLAINED TO THE , SOMETIMES DOCTORS CHANGE MEDICATIONS WHILE THE PATIENT IS IN THE HOSPITAL AND THAT IT COULD BE DANGEROUS, IF THE NURSES ARE UNAWARE OF THE MEDICATIONS THAT HE HAS BEEN GIVEN. PATIENT STATED THAT SHE TOLD SOMEONE THAT SHE WAS GIVING HIM MEDICATIONS. PATIENT STATED, THAT SHE WILL TALK TO A NURSE BEFORE GIVING ANY FURTHER MEDICATIONS
--- NOTE | 2018-08-12 22:40 | NUR ---
PATIENT RESTRING CONFORTABLY IN BED. RESPIRATIONS ARE EVEN AND UNLABORED. NO S/S OF DISTRESS. NO C/O PAIN. DENIES NEDDS. CALL IGHT WITHIN REACH. WILL CPOC.
--- NOTE | 2018-08-13 00:01 | NUR ---
PATIENT REFUSING TELEMETRY. PATIENT WAS EDUCATED AND ENCOURAGED TO WEAR THE TELEMETRY SO THAT WE COULD MONITOR IS HEART. PATIENT CONTINUES TO REFUSE
[2018-08-13 04:00] VITALS: BP 118/66
[2018-08-13 05:31] LABS: BASOPHILS 0.1 % (0-2); EOSINOPHILS 0.7 % (0-7); HEMATOCRIT 34.7 % (42.0-54.0); HEMOGLOBIN 11.5 g/dL (13.5-17.5); IMMATURE GRANULOCYTES 3.7 % (0-5); LYMPHOCYTES 11.9 % (15-50); MCH 30.3 pg (26.0-34.0); MCHC 33.1 g/dL (31.0-37.0); MCV 91.6 fL (80.0-100.0); MONOCYTES 12.3 % (2-11); NEUTROPHILS 71.3 % (40-80); RBC 3.79 10x6/uL (4.20-6.10); RDW 18.8 % (11.5-14.5); WBC 11.4 10x3/uL (4.8-10.8)
[2018-08-13 05:33] LABS: PLATELET COUNT 25 10x3/uL (130-400)
[2018-08-13 05:48] LABS: ALBUMIN 2.4 g/dL (3.4-5.0); ALKALINE PHOSPHATASE 93 U/L (46-116); BILIRUBIN - TOTAL 0.34 mg/dL (0.2-1.3); CALC OSMOLALITY 279 mosm/kg (275-300); CALCIUM 8.3 mg/dL (8.5-10.1); CARBON DIOXIDE 26.4 mmol/L (21.0-32.0); CHLORIDE - SERUM 105 mmol/L (98-107); CREATININE - SERUM 0.8 mg/dL (0.6-1.3); GLUCOSE 78 mg/dL (74-106); POTASSIUM - SERUM 3.9 mmol/L (3.5-5.1); PROTEIN - SERUM 5.9 g/dL (6.4-8.2); SODIUM 140 mmol/L (136-145); UREA NITROGEN 17 mg/dL (7-18); eGFR NON AFRICAN AMERICAN > 90 mL/min (90-120)
[2018-08-13 05:49] LABS: ALT (SGPT) 52 U/L (10-68)
--- NOTE | 2018-08-13 07:14 | NUR ---
CALLED AND SPOKE WITH IVETTE ZELAYA ABOUT PATIENTS PLT 25. IVETTE SAID TO CALL DR. JUSTIN RODRIGUEZ AND ASK IF IT IS OK THAT HE IS DISCARDED TODAY.
--- NOTE | 2018-08-13 07:48 | NUR ---
SPOKE WITH DR. HAWKINS. ZEUS TO GA HOME AND F/U IN HIS OFFICE THIS WEEK.
[2018-08-13 08:38] VITALS: BP 155/88
--- NOTE | 2018-08-13 10:12 | NUR ---
IV AND TELEMETRY DCD. DC PLANS GIVEN. UNDERSTANDING VOICED. ESCORTED TO CAR BY W/C.
--- NOTE | 2018-08-14 10:47 | MORECARE ---
CASE MANAGEMENT DISCHARGE SUMMARY PATIENT: TYREE ALICIA UNIT: [id number] ADM DATE: 08/11/18 AGE: 73 : [birth year] SEX: M ROOM/BED: D.2117 AUTHOR: LIZETH SÁNCHEZ PHYSICIAN: REFERRING PHYSICIAN: GOMEZ SELLERS MD DATE OF SERVICE: 08/14/18 Discharge Plan Patient Name: TYREE ALICIA [facility] : 1945 Planned Disposition: Home Anticipated Discharge Date: 08/13/18 Discharge Date: 08/13/2018 Expected LOS: 2 Initial Reviewer: [email or web address] Initial Review Date: 08/14/2018 Generated: 08/14/18 11:47 am Patient Name: TYREE ALICIA Page [phone] at 1047 All edits/amendments must be made on the electronic document DICTATION DATE: 08/14/18 1047 CHARGING BOARD OPERATOR: DREW 08/14/18 1047 RPT#: [id number] DC DATE:08/13/18 STATUS: DIS IN [facility] [address] [place] [address] END OF REPORT
== END 2018-08-13 10:14 | disposition home or self-care (01) ==
LOC: D.ER 18:27 → D.M2 22:08 → OBSVTIME 22:08 → D.SDCHOLD 08-12 16:26 → D.M2 08-12 16:29
PROVIDERS: Emergency Medicine; Family Medicine; ADMIT Family Medicine; ATTEND Family Medicine
DX: I25.119 Atherosclerotic heart disease of native coronary artery with unspecified angina pectoris (principal); Z95.0 Presence of cardiac pacemaker; C34.90 Malignant neoplasm of unspecified part of unspecified bronchus or lung; I10 Essential (primary) hypertension; J44.9 Chronic obstructive pulmonary disease, unspecified; K21.9 Gastro-esophageal reflux disease without esophagitis; F32.9 Major depressive disorder, single episode, unspecified; F41.9 Anxiety disorder, unspecified; D61.810 Antineoplastic chemotherapy induced pancytopenia; T45.1X5A Adverse effect of antineoplastic and immunosuppressive drugs, initial encounter; I48.0 Paroxysmal atrial fibrillation

== ENCOUNTER → 2018-12-01 12:40 | Outpatient (CLI) | payer MEDICARE, BC ==
[2018-08-12 12:20] VITALS: BMI 27.2
[~2018-12-01 12:40] MED LIST changes: +MEDROL DOSE PACK4 MG; +MONODOX100 MG; +TOBREX5 ML; +ZOFRAN8 MG
== END | disposition home or self-care (01) ==
LOC: D.US 12:40
PROVIDERS: ATTEND Internal Medicine Cardiovascular Disease
DX: I65.23 Occlusion and stenosis of bilateral carotid arteries (principal)

== ENCOUNTER 2019-03-12 08:13 | Outpatient (CLI) | payer MEDICARE, BC ==
[~2019-03-12] VITALS: Ht 167.6 cm; Wt 70.9 kg
--- NOTE | ~2019-03-12 | EC ---
PATIENT:TYREE ALICIA DATE OF SERVICE: 03/12/19 SEX: M MEDICAL RECORD: [id number] DATE OF : 41 LOCATION:D.CAT AGE OF PATIENT: 73 ADMISSION DATE: 03/12/19 REFERRING PHYSICIAN: INTERPRETING PHYSICIAN: JING MICHAELS MD ECHOCARDIOGRAM REPORT ECHO CHARGES 4 ECHO COMPLETE Date: 03/12/19 CLINICAL DIAGNOSIS: CHEST PAIN HX CAD ECHOCARDIOGRAPHIC MEASUREMENTS (adult normal given) AC root (d.<3.7cm) 4.1 cm LV Septum d (<1.2 cm> 1.5 cm Valve Excursion 1.7 cm LV Septum (systole) 1.7 cm Left Atria (s.<4.0cm> 3.0 cm LVPW d(<1.2cm) 1.9 cm RV (d.<2.3cm) 3.4 cm LVPW (sytole) 1.9 cm LV diastole(<5.6CM) 5.7 cm MV E-F(>70mm/sec) cm LV systole 3.8 cm LVOT Diameter 1.8 cm MV exc.(>10mm) 1.8 cm Est.ejection fraction (50-75%) % DOPPLER: LVIT cm/sec A 62.0 cm/sec E 152.0 cm/sec LA cm/sec RVSP 34 mmHg LVOT 123 cm/sec AOP1/2T m/s Asc. Ao 153 cm/sec RVOT 69 cm/sec RA cm/sec PA 134 cm/sec AV Gradient Peak 9.41 mmHg AV Mean 6.12 mmHg AV Area 2.2 cm MV Gradient Peak 13.03mmHg MV Mean 3.07 mmHg MV Area cm COMMENTS: Beam Builder: Annamarie TO Facilities Engineering Manager: 1 Dr. Michaels TAPE# PACS Pericardial Effusion N DATE OF SERVICE: 03/12/2019 ECHOCARDIOGRAM FINDINGS: 1. Left ventricular chamber size is within normal limits. Left ventricular systolic function is lower limits of normal to mildly depressed at 45%. 2. Left atrium, right atrium, and right ventricle chamber sizes are within normal limits. 3. Valvular structures have normal structure and motion. ECHOCARDIOGRAM REPORT [id number] TYREE ALICIA 4. Doppler interrogation reveals mild mitral regurgitation, mild tricuspid regurgitation, no other valvular insufficiency or stenosis. Pulmonary systolic pressure estimated at 34 mmHg. 5. No evidence of pericardial effusion or left ventricular thrombus. TRANSINT:[id number] Voice Confirmation ID: [id number] DOCUMENT ID: [id number] JING MICHAELS MD CC: [id number] DICTATION DATE: 03/12/19 1335 MONEY EXAMINER: 03/12/19 2256 DEP CLI 03/12/19 [facility] [address] [place] [place] [id number]
--- NOTE | ~2019-03-12 | CN ---
PATIENT NAME:TYREE ORTEZ MEDICAL RECORD: [id number] : 41 LOCATION:D.CAT ADMIT DATE: ACCOUNT: [id number] CONSULTING PHYSICIAN: JING ERVIN MD REFERRING PHYSICIAN: JING ERVIN MD DATE OF CONSULTATION: 03/12/2019 CARDIOLOGY CONSULTATION ADMITTING DIAGNOSES: 1. Unstable angina. 2. Coronary artery disease. 3. Previous multivessel percutaneous transluminal coronary angioplasty and stent. 4. Smoking. 5. Chronic obstructive pulmonary disease. 6. Paroxysmal atrial fibrillation. 7. Hypertension. 8. Hyperlipidemia. HISTORY OF PRESENT ILLNESS: Mr. Ortez has been having 1 week of unstable anginal symptomatology just like that of his previous angina, has taken multiple sublingual nitro over the past 24 hours. He keeps having recurrent pain, is having episodes of rest pain. It is a classic anginal pain. It is just like that of his previous angina. PHYSICAL EXAMINATION: CONSTITUTIONAL/GENERAL APPEARANCE: Well nourished, well developed, appears stated age. EYES: Lids and conjunctivae noninjected. No discharge. No pallor. ENT: Lips within normal limit. No cyanosis. No pallor. NECK: Carotid arteries, bilateral normal upstroke. No bruits. No thrills. No jugular venous pressure or distention. CERVICAL LYMPH NODES: Nontender. Nonenlarged. THYROID: Not enlarged. No nodules. CARDIOVASCULAR: Precordial exam, nondisplaced. No heaves or pericardial thrills. Rate and rhythm, regular. Heart sounds, normal S1, normal S2. No S3, no gallop, no rub. Systolic murmur, not heard. Diastolic murmur, not heard. RESPIRATORY: Respiratory effort, unlabored. Normal curvature. No thoracic deformity. No chest wall tenderness. Percussion, resonant. Auscultation, clear. No wheezes, no rales, no rhonchi. ABDOMEN: Soft, nondistended, nontender. No abdominal pain, no vomiting and normal appetite. MUSCULOSKELETAL: No joint tenderness, normal gait, normal tone. SKIN: Warm and dry. IMPRESSION: Unstable angina. At this time, he is on beta-minh, nitrate, Ranexa and calcium channel minh, hence maximal medical therapy and continues to have progression of his anginal symptomatology, hence we will proceed with coronary angiography. Further care depends upon the findings of the angiography. TRANSINT:[id number] Voice Confirmation ID: [id number] DOCUMENT ID: [id number] CONSULT REPORT [id number] TYREE ORTEZ JEFFREY MD CC: [id number] DICTATION DATE: 03/12/19 123 TURKEY FARMER: [id number]/12/[id number] DEP CLI 03/12/19 [place] [id number] [place] [id number]
--- NOTE | ~2019-03-12 | HEMODYNAMI ---
PATIENT:TYREE ALICIA MEDICAL RECORD: [id number] : 41 LOCATION:[facility] ADMISSION DATE: 03/12/19 Generatedon:03/12/201912:15 Patient name: TYREE ALICIA Patient #: [id number] : 1945 Date of study: 03/12/2019 Page: Of Hemodynamic Procedure Report Patient Data Patient Demographics Procedure consent was obtained First Name: TYREE Gender: Male Last Name: RAVIN : 1945 [facility] Initial: J Age: 73 year(s) Patient #: [id number] Race: SSN: [id number] Additional ID: [id number] Contact details [address]: [address] [place] [address] State: [place] City: [place] Zip code: [address] Past Medical History History of disease Date Diagnosis Comments CAD Allergies Allergen Reaction Date Comments Reported Other allergy 04/12/2015 Isosorbide Codeine 09/24/2016 Other allergy 03/12/2019 CODEINE Admission Admission Data Admission Date: 03/12/2019 Admission Time: 8:13 Arrival Date: 03/12/2019 Arrival Time: 0:00 Admit Source: Emergency Insurance Payor: Private department health insurance, Medicare [facility] #: [id number] Height (in.): 167 BSA: 2.51 (m2) Height (cm.): 424.18 BMI: 1.76 (kg/m2) Weight (lbs.): 70 Weight (kg.): 31.75 Lab Results Lab Result Date: 03/12/2019 Lab Result Time: 0:00 Biochemistry Name Units Result Min Max BUN mg/dl 21 --(----)-* 7 18 Creatinine mg/dl 1.1 --(--*-)-- 0.6 1.3 eGFR ml/min 69 *-(----)-- 90 120 NONAFRICAN CBC Name Units Result Min Max Hemoglobin g/dl 9.6 *-(----)-- 13.5 17.5 Procedure Procedure Types Cath Procedure Diagnostic Procedure [facility] w/Coronaries FFR/IVUS FFR Initial Sedation Charges Moderate Sedation up to 30 minutes PCI Procedure Coronary Stent Coronary Stent Initial Coronary Atherectomy Atherectomy w/PTCA Coronary Initial Hemochron ACT Test Procedure Description Procedure Date Procedure Date: 03/12/2019 Procedure Start Time: 11:45 Procedure End Time: 12:13 Procedure Staff Name Function Benjamín Best RT Plug Cutter Elsy Baez RT Monitor Denisha James RN Nurse Claudine Trevino RT Scrub Neri Michaels MD Performing Physician Indication Chest pain Procedure Data Cath Procedure Fluoroscopy Diagnostic fluoroscopy Total fluoroscopy Time: 0 time: 0 min min Diagnostic fluoroscopy Total fluoroscopy dose: dose: 1018 mGy 1018 mGy Contrast Material Contrast Material Type Amount (ml) Isovue 300 86 Entry Location Entry Primary Successful Side Size Upsize Upsize Entry Closure Succes sful Closure Location (Fr) 1 (Fr) 2 (Fr) Remarks Device Remarks Femoral Right 5 Fr 6 Fr Exoseal artery Short Estimated blood loss: 10 ml Diagnostic catheters Device Type Used For End Catheter Placement MULTIPACK Pigtail 5 Fr Procedure catheter MULTIPACK JL 4.0 5Fr Procedure catheter MULTIPACK 3DRC 5Fr Procedure catheter Procedure Complications No complications Procedure Medications Medication Administration Route Dosage 0.9% NaCl I.V. 100 ml/hr Oxygen etCO2 Nasal cannula 2 l/min Lidocaine 2% added to field 20 Heparin Flush Bag added to field 2 bags (1000units/500ml NS) Versed I.V. 2 mg Fentanyl I.V. 100 mcg Heparin Bolus I.V. 4000 units Integrilin (Bolus I.V. 6.2 ml 2mg/ml) Integrilin (Bolus wasted 3.8 ml 2mg/ml) Plavix P.O. 600 mg Versed I.V. 1 mg Hemodynamics Rest BSA: 2.51 (m2) HGB: 9.6 (g/dl) O2 Consumption: Estimated: 311.49 (ml/min) O2 Con sumption indexed: Estimated:124.1 (ml/min/m) Heart Rate: 95 (bpm) Gradients Valve Time Site Site Mean SEP/DFP Peak To Heart Use 1 2 (mmHg) (sec/min) Peak Rate (mmHg) (bpm) Aortic 11:48 LV AO 93 Snapshots Pre Cath Intra NCS Post Cath Vital Signs Time Heart Resp SPO2 etCO2 NIBP (mmHg) Rhythm Pain Sedation Rate (ipm) (%) (mmHg) Status Level (bpm) 11:33:56 96 19 97 17 150/77(116) Paced 0 (11) 10(A) , No pain 11:38:14 91 19 98 27.9 129/64(95) Paced 0 (11) 10(A) , No pain 11:42:22 95 17 98 25.6 126/69(110) Paced 0 (11) 10(A) , No pain 11:46:30 91 20 98 29 119/66(88) Paced 0 (11) 10(A) , No pain 11:50:34 93 18 97 13.5 105/71(89) Paced 0 (11) 10(A) , No pain 11:54:35 95 18 97 22.6 101/64(80) Paced 0 (11) 9(A) , No pain 11:59:32 95 17 98 30.1 99/62(77) Paced 0 (11) 9(A) , No pain 12:04:21 91 17 97 12 129/69(114) Paced 0 (11) 9(A) , No pain 12:09:20 103 18 98 0 155/91(115) Paced 0 (11) 10(A) , No pain 12:13:32 106 17 94 22.6 153/84(125) Paced 0 (11) 10(A) , No pain Medications Time Medication Route Dose Verified Delivered Reason Notes Effectiveness by by 11:33:13 0.9% NaCl I.V. 100 Neri Denisha used for ml/hr Brando James range management specialist 11:33:20 Oxygen etCO2 2 Neri Denisha used for Nasal l/min Brando James procedure cannula RN 11:33:25 Lidocaine 2% added 20ml Neri He for local to vial Brando Michaels MD anesthetic field 11:33:30 Heparin Flush added 2 Neri Neri used for Bag to bags Brando Michaels MD procedure (1000units/500ml field NS) 11:43:53 Versed I.V. 2 mg Neri Denisha for sedation Brando James RN 11:43:58 Fentanyl I.V. 100 Neri Denisha for sedation mcg Brando James RN 11:48:53 Versed I.V. 1 mg Neri Denny for sedation Brando James RN 11:55:05 Heparin Bolus I.V. 4000 Neri Denny for verif ied units Brando James anticoagulation with Dr. KJ Michaels 11:56:06 Integrilin I.V. 6.2 Neri Hurda for (Bolus 2mg/ml) ml Brando James antiplatelet RN therapy 11:56:19 Integrilin wasted 3.8 Neri Hurda for (Bolus 2mg/ml) ml Brando James antiplatelet RN therapy 11:56:41 Plavix P.O. 600 Neri Denny for mg Brando James antiplatelet RN therapy Procedure Log Time Note 11:24:43 Patient Height : 167 inches 11:24:52 Patient Weight : 70 lbs 11:24:52 Insurance Payor : Private health insurance, Medicare 11:24:55 Admit Source: Emergency department 11:24:58 Arrival Date: 03/12/2019 12:00:00 AM 11:25:58 Lab Result : Creatinine 1.1 mg/dl 11:25:58 Lab Result : BUN 21 mg/dl 11:25:58 Lab Result : Hemoglobin 9.6 g/dl 11:25:58 Lab Result : eGFR NONAFRICAN 69 ml/min 11:26:10 Procedure type changed to Cath procedure, Diagnostic procedure, LHC, LHC w/Coronaries, FFR/IVUS, FFR Initial, Sedation Charges, Moderate Sedation up to 30 minutes, PCI procedure, Coronary Stent, Coronary Stent Initial, Coronary Atherectomy, Atherectomy w/PTCA Coronary Initial, Hemochron ACT Test 11:26:15 Diagnostic Cath Status : Emergency 11:26:51 Indication : Chest pain 11:27:15 Procedure Status Urgent Heart Cath (IP). 11:27:17 Benjamín VANEGAS(R) sent for patient. Start room use. 11:27:36 Time tracking: Regular hours (M-F 7:00 - 5:00) 11:27:44 Plan of Care:Hemodynamics will remain stable., Cardiac rhythm will remain stable., Comfort level will be maintained., Respiratory function will remain adequate., Patient/ family verbilizes understanding of procedure., Procedure tolerated without complication., Recovers from procedure without complications.. 11:27:52 Patient received from ED to CCL 2 Alert and oriented. Tansferred to table in Supine position. 11:27:55 Signed procedure consent form obtained from patient. 11:27:57 Warm blankets applied, and tenisha hugger turned on for patient comfort. 11:27:58 Correct patient and procedure confirmed by team. 11:28:03 ECG and BP/O2 sat monitors applied to patient. 11:28:09 H&P Date Dictated: 03/12/2019 Within 30 days and on chart.. 11:28:11 Pre-procedure instructions explained to patient. 11:28:19 Family in waiting room. 11:28:21 Patient NPO since Midnight. 11:28:46 Patient allergic to Other allergyCODEINE 11:28:52 Is the patient allergic to Iodine/contrast media? No. 11:28:54 Was the patient premedicated? Yes 11:32:46 Vital chart was started 11:33:13 0.9% NaCl 100 ml/hr I.V. was administered by Denisah James RN; used for procedure; Verbal order read back and verified. 11:33:20 Oxygen 2 l/min etCO2 Nasal cannula was administered by Denisha James RN; used for procedure; Verbal order read back and verified. 11:33:25 Lidocaine 2% 20ml vial added to field was administered by Neri Michaels MD; for local anesthetic; Verbal order read back and verified. 11:33:30 Heparin Flush Bag (1000units/500ml NS) 2 bags added to field was administered by Neri Michaels MD; used for procedure; Verbal order read back and verified. 11:34:07 Dr. Michaels informed of pt labs (H/H, PLTs). Will proceed with procedure per MD. 11:35:28 Is patient on blood thinner?No 11:35:30 Patient diabetic? No. 11:35:34 Snore? Yes 11:35:38 Sleep apnea? No 11:35:51 Airway obstruction? No LUNG CANCER 11:36:01 Patient pain scale 0/10 ?. 11:36:09 IV patent on arrival in left forearm with 0.9% NaCl at KVO. 11:36:14 Lab results completed and on chart. 11:36:19 Stress Test: no; N/A ? 11:36:23 Risk of Mortality: 1.2 11:36:26 Risk of blood transfusion: 16.9 11:36:29 Risk of MIKE: 5.0 11:36:33 Right groin area was prepped with chlora-prep and draped in sterile fashion 11:36:34 Alarms reviewed by R. N. 11:36:34 Sharps counted by scrub and verified by R.N. 11:36:37 Baseline sample Acquired. 11:36:46 Rhythm: paced 11:36:47 Full Disclosure recording started 11:42:39 Zero performed for pressure channel P1 11:42:50 Zero performed for pressure channel P1 11:42:58 Zero performed for pressure channel P1 11:43:10 Physician arrived 11:43:12 --------ALL STOP TIME OUT------ 11:43:12 Final Timeout: patient, procedure, and site verified with staff and physician. All members of the team are in agreement. 11:43:14 Right groin site verified by team. 11:43:18 Fire Safety Assessment: A--An alcohol-based skin anteseptic being used preoperatively., C--Open oxygen or nitrous oxide is being used., D--An ESU, laser, or fiber-optic light is being used. 11:43:29 Physical assessment completed. ASA score P 3 - A patient with severe systemic disease as per Neri Michaels MD. 11:43:37 2) 60-89 Mildly reduced kidney function, and other findings (as for stage 1) point to kidney disease. 11:43:53 Versed 2 mg I.V. was administered by Denisha James RN; for sedation; Verbal order read back and verified. 11:43:58 Fentanyl 100 mcg I.V. was administered by Denisha James RN; for sedation; Verbal order read back and verified. 11:44:03 Maximum allowable contrast dose (3.7 X eGFR X 0.75)191 ml. 11:44:07 Sedation plan: IV Moderate Sedation Medication:Versed, Fentanyl 11:44:52 Use device set Femoral Dx 11:44:53 ACIST Syringe (43384) opened to sterile field. 11:44:53 Bag Decanter () opened to sterile field. 11:44:54 Medline Cath Pack ([id number]) opened to sterile field. 11:44:55 ACIST Hand Control (20969) opened to sterile field. 11:44:55 ACIST Manifold (60716) opened to sterile field. 11:44:59 DIAGNOSTIC Multipack 5Fr catheter set (KF6027) opened to sterile field. 11:45:01 SHEATH 5FR Ollie (LUN362) opened to sterile field. 11:45:02 EMERALD Guide Wire (502-159) opened to sterile field. 11:45:05 Tegaderm 4 x 4 (1626W) opened to sterile field. 11:45:09 Procedure started. 11:45:25 Local anesthetic to right femoral artery with Lidocaine 2% by Neri Michaels MD.INITIAL ACCESS ONLY 11:45:34 A 5 Fr sheath was inserted into the Right Femoral artery 11:45:39 j wire advanced. 11:47:53 A MULTIPACK Pigtail 5 Fr catheter was advanced over the wire and used for Procedure. 11:47:58 LV angiography performed. 11:48:20 LV gram done using RODRIGUEZ 11:48:44 EF : 50 % 11:48:53 Versed 1 mg I.V. was administered by Denisha James RN; for sedation; Verbal order read back and verified. 11:48:53 LV hemodynamics recorded. 11:49:23 Catheter removed. 11:49:38 A MULTIPACK JL 4.0 5Fr catheter was advanced over the wire and used for Procedure. 11:49:44 LCA angiography performed. 11:49:46 Catheter removed. 11:50:21 A MULTIPACK 3DRC 5Fr catheter was advanced over the wire and used for Procedure. 11:50:28 RCA angiography performed. 11:50:30 Catheter removed. 11:52:29 Proceeding to intervention. 11:52:38 Sheath upsized to a 6 Fr Short. 11:53:06 SHEATH 6FR Ollie (RPL296) opened to sterile field. 11:53:08 Harvey Verrata Plus pressure wire (59923C) opened to sterile field. 11:53:09 GUIDE 6FR HS I catheter (LA6HSI) opened to sterile field. 11:53:10 INFLATOR Merit BasixCompak (WC8003) opened to sterile field. 11:53:11 GUIDE 6FR XB 3.5 catheter ([id number]) opened to sterile field. 11:53:17 6 Fr hs1 guide catheter was inserted over the wire 11:53:21 ifr wire advanced. 11:53:26 FFR/IFR wire advanced. 11:54:04 LASER ELCA 0.9 Rx atherectomy catheter (453118) opened to sterile field. 11:55:05 Heparin Bolus 4000 units I.V. was administered by Denisha James RN; for anticoagulation; verified with Dr. Michaels Verbal order read back and verified. 11:55:25 Wire advanced across lesion. 11:55:43 mRCA lesion measured at .36 with IFR 11:56:06 Integrilin (Bolus 2mg/ml) 6.2 ml I.V. was administered by Denisha James RN; for antiplatelet therapy; Verbal order read back and verified. 11:56:19 Integrilin (Bolus 2mg/ml) 3.8 ml wasted was administered by Denisha James RN; for antiplatelet therapy; Verbal order read back and verified. 11:56:41 Plavix 600 mg P.O. was administered by Denisha James RN; for antiplatelet therapy; Verbal order read back and verified. 11:56:55 Place stent Inflation Number: 1 A INTEGRITY RX 2.5 x 08 stent ([id number]) was prepped and advanced across the Mid RCA 70. The stent was deployed at 11 BELINDA for 0:12 (min:sec) . 11:57:19 Wire removed. 11:57:22 Guide Catheter removed. 11:57:35 Pre PCI Site: [place] mRCA has 70% stenosis. 11:57:43 Post PCI Site: [place] mRCA has 0% stenosis. 11:57:55 6 Fr xb3.5 guide catheter was inserted over the wire 11:58:43 Pre PCI Site: [place] mLAD has 90% stenosis. 11:59:27 ASAHI wire advanced. 11:59:31 Wire advanced across lesion. 11:59:44 Laser pass to mLAD with Fluence of 80 and Rate of 40. 12:05:57 Laser catheter removed. 12:06:19 Inflate balloon Inflation number: 1 A EUPHORA 2.5 x 20 Balloon ([id number]) was prepped and advanced across the Mid LAD 70, then inflated to 17 BELINDA for 0:11 (min:sec) . 12:06:34 Inflation number: 2 The EUPHORA 2.5 x 20 Balloon ([id number]) was reinflated across the Mid LAD , to 21 BELINDA for 0:08 (min:sec) . 12:07:21 Laser total pulses delivered: 4400 12:07:27 Laser total treatment time: 1 minutes 50 seconds 12:08:04 Balloon removed over the wire. 12:08:05 Wire removed. 12:08:05 Guide catheter removed. 12:08:15 Sheath removed intact; hemostasis achieved with Exoseal to the Right Femoral artery. 12:08:37 EXOSEAL 6Fr (EX600) opened to sterile field. 12:08:40 Procedure ended.(Physican Out) 12:08:53 Fluoroscopy time 00.00 minutes. 12:08:59 Fluoroscopy dose: 1018 mGy 12:08:59 Flurop Dose total: 1018 12:09:24 Dose Area Product 34264 mGy/cm. 12:09:28 Contrast amount:Isovue 300 86ml. 12:09:30 Maximum allowable dose exceeded? No. 12:09:31 Sharps counted by scrub and verified by R.N. 12:09:33 Insertion/operative site no bleeding no hematoma. 12:09:37 Post-op/insertion site Right Femoral artery dressed using a 4 x 4 and Tegaderm. 12:09:39 Post Procedure Pulses reassessed and unchanged 12:09:45 Post-procedure physical assessment completed. ASA score P 3 - A patient with severe systemic disease as per Neri Michaels MD. 12:09:48 Post procedure rhythm: unchanged. 12:09:52 Estimated blood loss: 10 ml 12:09:54 Post procedure instruction explained to patient.Patient verbalizes understanding. 12:11:16 Procedure and supply charges have been captured, reviewed, submitted and are correct. 12:12:50 Procedure Complication : No complications 12:12:53 Vital chart was stopped 12:12:57 [facility] Findings: MVD- PCI performed (see procedure note) 12:13:00 Operative report dictated upon procedure completion. 12:13:01 See physician's report for complete and final results. 12:13:11 Report given to Pre/Post Procedure Room. 12:13:16 Patient transfered to Pre/Post Procedure Room with Stretcher. 12:13:17 Procedure ended. 12:13:17 Full Disclosure recording stopped 12:13:29 ACC-PCI Only Patient was given prescriptions, or instructed by Neri Michaels MD to start/continue the following medications upon discharge: Plavix 12:13:30 End room use (Document Last) 12:13:53 ACT drawn and resulted at 262 seconds. (normal therapeutic range 180-240 seconds). Intervention Summary Intervention Notes Time ActionType Lesion and Equipment Action# Pressure Duration Attributes Used 11:56:55 Place stent Mid RCA INTEGRITY RX 1 11 00:13 2.5 x 08 stent ([id number]) 12:06:19 Inflate Mid LAD EUPHORA 2.5 1 17 00:11 balloon x 20 Balloon ([id number]) 12:06:34 Reinflate Mid LAD EUPHORA 2.5 2 21 00:08 balloon x 20 Balloon ([id number]) Device Usage Item Name Manufacture Quantity Catalog Hospital Part Current Mini mal Lot# / Number Charge Number Stock Stock Serial# Code ACIST Acist 1 58614 053304 175281 477345 20 Syringe Medical (49520) Systems Inc Bag Decanter Microtek 1 2001S 702432 12270 613167 5 (2001S) Medical Inc. Medline Cath Medline 1 [id number] 723305 14006 231708 5 Pack ([id number]) ACIST Hand Acist 1 02240 592406 625299 152148 5 Control Medical (82065) Systems Inc ACIST Acist 1 01446 344137 723383 491484 5 Manifold Medical (15704) Systems Inc DIAGNOSTIC Cardinal 1 JZ4986 841967 62392 668756 30 Multipack Health 5Fr catheter set (NL2102) SHEATH 5FR Terumo 1 BRJ689 661109 846490 082567 5 Ollie (WEH847) EMERALD Cardinal 1 502-455 536985 620077 660530 5 Guide Wire Health (502-455) Tegaderm 4 x 3M 1 1626W 292813 066979 614588 5 4 (1626W) MULTIPACK Cardinal 1 467470 5 Pigtail 5 Fr Health catheter MULTIPACK JL Cardinal 1 048691 5 4.0 5Fr Health catheter MULTIPACK Cardinal 1 625488 5 3DRC 5Fr Health catheter SHEATH 6FR Terumo 1 XOJ365 265703 699327 776191 40 Ollie (JXL151) Harvey Harvey 1 15494F 548017 558986876 749660 5 Verrata Plus pressure wire (67482Q) GUIDE 6FR HS Medtronic 1 LA6HSI 538271 19780 765436 1 I catheter (LA6HSI) INFLATOR Merit 1 KO9075 763079 481392 096077 15 [facility] Medical BasixCompak (LG1746) GUIDE 6FR XB Cardinal 1 [id number] 520656 055110 426398 2 3.5 catheter Health (36326585) LASER ELCA Janae 1 110-004 851354 575075 657681 5 0.9 Rx Healthcare atherectomy (170329) catheter (384800) INTEGRITY RX Medtronic 1 [id number] 656872 698007 884820 5 [id number] 2.5 x 08 stent ([id number]) EUPHORA 2.5 Medtronic 1 [id number] 882155 180500 084220 5 [id number] x 20 Balloon ([id number]) EXOSEAL 6Fr Cardinal 1 EX600 600606 978248 747156 10 (EX600) Health Signature Audit [place] Stage Time Signature Unsigned Intra-Procedure 03/12/2019 Elsy Baez 12:14:07 PM RT(R) Intra-Procedure 03/12/2019 Denisha James 12:15:00 PM RN Intra-Procedure 03/12/2019 Neri Michaels 12:15:27 PM Signatures Monitor : Elsy Baez Signature : RT Date : Time : Nurse : Denisha James RN Signature : Date : Time : Performing Physician : Signature : Neri Michaels MD Date : Time : [facility] [address] [place] [address]
--- NOTE | ~2019-03-12 | OP ---
PATIENT NAME: TYREE ALICIA MEDICAL RECORD: [id number] :41 LOCATION:D.CAT ADMISSION DATE: SURGEON: JING ERVIN MD DATE OF OPERATION: 03/12/2019 PROCEDURES: 1. Laser atherectomy, PTCA, LAD. 2. PTCA stent RCA. 3. IFR. 4. Left heart catheterization. 5. Selective coronary angiography. 6. Left ventriculogram. INDICATION: Unstable angina and coronary artery disease. PROCEDURE IN DETAIL: After informed consent was obtained and after a detailed description of risks, benefits as well as alternative therapies, the patient elected to proceed with angiogram and angioplasty. The right femoral area was prepped and draped in normal sterile fashion. Right femoral artery was cannulated via modified Seldinger technique with placement of 6-Swiss sheath. All catheters exchanged through this sheath. FINDINGS: Left ventriculogram was performed in standard 30-degree RODRIGUEZ view, reveals good cardiac wall motion, ejection fraction 50% to 55%. SELECTIVE CORONARY ANGIOGRAPHY: 1. Left main has no significant angiographic disease. 2. Left anterior descending has previously placed stents. There is 90% in-stent restenosis in the mid vessel. 3. Left circumflex has moderate irregularities, but no flow-limiting stenosis. 4. The right coronary has previously placed stents. There is 70% in-stent restenosis mid vessel and IFR is abnormal. PTCA STENT OF THE RCA: The stent used was a 2.5 x 8 mm Integrity. Result was 0% residual stenosis. LASER ATHERECTOMY, PTCA OF THE LAD: Laser atherectomy was performed with a 0.9 laser catheter, multiple passes were made at 8:40. It was ballooned afterwards with a 2.5 balloon taken to 21 atmospheres. Result was 0% residual stenosis. OVERALL IMPRESSION: Successful laser atherectomy, PTCA of the LAD for in-stent restenosis, then successful PTCA stent of the RCA, both going from 70% to 90% initial stenosis to 0% residual. TRANSINT:[id number] Voice Confirmation ID: [id number] DOCUMENT ID: [id number] JING ERVIN MD CC: [id number] DICTATION DATE: 03/12/19 1238 RISK CONTROL PRODUCT LIABILITY DIRECTOR: 03/12/19 2153 [facility] CLI 03/12/19 [place] [address]
[2019-03-12 08:24] VITALS: Ht 167.6 cm; Wt 70.9 kg
[2019-03-12 08:58] LABS: HEMATOCRIT 30.6 % (42.0-54.0); HEMOGLOBIN 9.6 g/dL (13.5-17.5); MCH 35.7 pg (26.0-34.0); MCHC 31.4 g/dL (31.0-37.0); MCV 113.8 fL (80.0-100.0); RBC 2.69 10x6/uL (4.20-6.10); RDW 16.7 % (11.5-14.5); WBC 5.1 10x3/uL (4.8-10.8)
[2019-03-12 09:02] LABS: PLATELET COUNT 43 10x3/uL (130-400)
[2019-03-12 09:08] LABS: CALC OSMOLALITY 285 mosm/kg (275-300); CALCIUM 9.1 mg/dL (8.5-10.1); CARBON DIOXIDE 27.9 mmol/L (21.0-32.0); CHLORIDE - SERUM 106 mmol/L (98-107); CREATININE - SERUM 1.1 mg/dL (0.6-1.3); GLUCOSE 106 mg/dL (74-106); POTASSIUM - SERUM 4.3 mmol/L (3.5-5.1); SODIUM 142 mmol/L (136-145); UREA NITROGEN 21 mg/dL (7-18); eGFR NON AFRICAN AMERICAN 69 mL/min (90-120)
[2019-03-12 09:26] LABS: APTT 24.5 SECONDS (22.8-39.4); INR 1.11 (0.85-1.17); PROTIME 13.8 SECONDS (11.6-15.0)
[2019-03-12 09:30] LABS: ALBUMIN 2.9 g/dL (3.4-5.0); ALKALINE PHOSPHATASE 83 U/L (46-116); ALT (SGPT) 28 U/L (10-68); BILIRUBIN - TOTAL 0.54 mg/dL (0.2-1.3); CKMB 0.7 U/L (0.0-3.6); CREATINE KINASE 10 UL (21-232); MAGNESIUM - SERUM 1.8 mg/dL (1.8-2.4); PROTEIN - SERUM 6.7 g/dL (6.4-8.2); TROPONIN-I < 0.017 ng/mL (0.000-0.060)
[2019-03-12 09:54] LABS: LYMPHOCYTES 21 % (15-50); MONOCYTES 19 % (2-11); NEUTROPHILS 60 % (40-80); PLATELET ESTIMATE DECREASED
[2019-03-12 09:56] LABS: ANISOCYTOSIS OCC
[2019-03-12 11:49] VITALS: BP 146/59
[2019-03-12] MEDS ORDERED: PLAVIX75 MG PO (12:18)
--- NOTE | 2019-03-12 12:25 | NUR ---
ER PT RECEIVED VIA STRETCHER FROM EXPERIMENTAL ASSEMBLER FOR RECOVERY. PT AWAKE BUT DROWSY, HE DENIES PAIN OR DISCOMFORT. IV PATENT INFUSING VIA ORDERS. R GROIN W 6FR EXOCELE, DRESSING CDI NO BLEEDING OR S/S HEMATOMA NOTED. LEG PINK AND WARM, PEDAL PULSES PALPABLE. PT HAS RESTLESS LEGS, INSTRUCTED TO KEEP R LEG STAIGHT MUCH POSSIBLE AND HEAD ON PILLOW. HE VERBALIZED UNDERSTANDING. PT PLACED ON CARDIAC MONITORS, HR PACED RATE 107, BP 156/85, RR 14, SAT 88 ON ROOM AIR. O2 PLACED VIA NC AT 2L. CALL LIGHT IN REACH.
--- NOTE | 2019-03-12 12:45 | NUR ---
PT RESTING W/O COMPLAINTS. R GROIN SOFT, DRESSING CDI NO BLEEDING OR S/S HEMATOMA NOTED. PEDAL PULES PALPABLE. VSS. CALL LIGHT IN REACH, AT BEDSIDE.
--- NOTE | 2019-03-12 13:30 | NUR ---
PT RESTING, DENIES PAIN OR NEEDS. R GROIN SOFT, DRESSING REMAINS CDI NO BLEEDING OR S/S HEAMTOMA NOTED. PEDAL PULSES PALAPBLE. VSS. AT BEDSIDE
--- NOTE | 2019-03-12 14:05 | NUR ---
PT MORE AWAKE, DENIES PAIN OR NEEDS. R GROIN SOFT, DRESSING CDI NO BLEEDING OR S/S HEMATOMA NOTED. PEDAL PULSES PALPABLE. VSS, CALL LIGHT IN REACH
--- NOTE | 2019-03-12 14:35 | NUR ---
R GROIN W/O BLEEDING OR S/S HEMATOMA. PT DENIES NEEDS. VSS. CALL LIGHT IN REACH. REMAINS AT BEDSIDE
--- NOTE | 2019-03-12 14:53 | NUR ---
DISCHARGE INSTRUCTIONS REVIEWED W PT AND FRIEND, SHE VERBALIZED UNDERSTANDING. EXPLAINED IMPORTANCE OF STARTING [place] AND SHE STATES UNDERSTANDING. BP 204/59. WILL MONITOR UNTIL SOME IMPROVEMENT BEFORE DISCHARGE. CALL LIGHT IN REACH
--- NOTE | 2019-03-12 15:05 | NUR ---
R GROIN SOFT, DRESSING CDI NO S/S HEMATOMA NOTED. HOB ELEVATED SLIGHTLY. VSS. PT DENIES PAIN OR NEEDS AT THIS TIME. AT BS, CALL LIGHT IN REACH
--- NOTE | 2019-03-12 15:38 | NUR ---
PT TOLERATED SANDWICH TRAY W/O NAUSEA. R GROIN SOFT, DRESSING REMAINS CDI NO BLEEDING OR S/S HEMATOMA NOTED. HR PACED, 89, BP 105/51, O2 REMOVED AND SAT 96 ON ROOM AIR.
--- NOTE | 2019-03-12 15:52 | NUR ---
DISCHARGE INSTRUCTIONS REVIEWED W PT AND , BOTH VERBALIZED UNDERSTANDING. EXPLAINED THE IMPORTANCE STARTING [place] TOMORROW, THEY VERBALIZED UNDERSTANDING. R GROIN REMAINS SOFT, NO BLEEDING OR S/S HEMATOMA. MONITORS REMOVED AND PT UP TO DRESS FOR DISCHARGE
--- NOTE | 2019-03-12 16:06 | NUR ---
PT AMBULATED TO BR, VOIDING W/O DIFFICULITY. PT THEN DISCHARGED VIA WC TO WAITING IN PRIVATE VEHICLE. PT HAD ALL BELONGINGS AND DISCHARGE INFORMATION.
== END 2019-03-12 16:05 | disposition home or self-care (01) ==
LOC: D.CATH 08:13 → D.ER 08:13 → EDSTATUS 10:07 → D.CATH 16:05
PROVIDERS: Family Medicine; ATTEND Internal Medicine Interventional Cardiology
DX: I25.110 Atherosclerotic heart disease of native coronary artery with unstable angina pectoris (principal)